=== PATIENT | female | born 1980 | race Caucasian/White ===

== ENCOUNTER 2020-05-14 21:14 | Emergency (ER) | payer MEDICAID, SELFPAY ==
[2020-05-14 21:15] VITALS: BP 146/82; PULSE 74; RESP 16; TEMP 36.3; O2SAT 99; BMI 49.2
[2020-05-14] MEDS: cycloBENZAPRine HCl 5 MG TABLET PO (22:20)
[2020-05-14] MEDS: Triamcinolone Acetonide 40 MG/ML Vial IM (22:21)
[2020-05-14] MEDS: Ketorolac 15 MG/ML Vial IM (22:22)
--- NOTE | 2020-05-14 22:57 | ED.DCSUM_ITS ---
History of Present Illness Chief Complaint: Back Narrative: 39-year-old male presents with left back pain radiating into her left leg. Has a past medical history of sciatica. 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 Lawrence that she may have aggravated it yesterday. Describes the pain is aching and worse with movement. Denies any loss of bowel or bladder. Denies any fever, chills, IV drug abuse, saddle anesthesia. Past Medical History - Allergies and Home Meds Allergies/Adverse Reactions: Allergies Penicillins Allergy (Verified 05/14/20 21:17) Hives Primary Care Physician: NOT,DEFINED [Primary Care Provider] - Past Medical History: None Surgical History: no surgical history Lives: With Family Smoking Status: Never smoker Alcohol: None Drugs: None Review of Systems General: Denies: Chills, Fever, Sweats Eyes: Denies: Visual changes - bilaterally, Diplopia ENT: Denies: Rhinorrhea, Sore throat Cardiovascular: Denies: Chest pain, Palpitations Respiratory: Denies: Dyspnea, Cough, Dyspnea on exertion Gastrointestinal: Denies: Abdominal pain, Nausea, Vomiting, Diarrhea, Melena, Hematochezia Genitourinary: Denies: Dysuria, Hematuria, Frequency Musculoskeletal: Reports: Back pain. Denies: Extremity Pain Skin: Denies: Rash, Wounds Neurological: Denies: Headache, Weakness, Numbness Physical Exam Vital Signs/Narrative: Vital Signs Temp Pulse Resp BP Pulse Ox 05/14/20 21:15 97.3 F L 74 16 146/82 H 99 Inital Vital Signs reviewed: Yes General: Well nourished, Well developed, No Acute Distress Head: Normocephalic, Atraumatic Eyes: Perrl, EOMI ENT: Moist mucous membranes, No rhinorrhea Neck: Supple, Nontender Cardiovascular: Regular rate, Regular rhythm, No murmurs Respiratory: No distress, CTA bilaterally, Chest nontender Abdomen: Soft, Nontender, Nondistended, Normal bowel sounds Back: Nontender, Normal Inspection, - - Left paraspinal lumbar muscle spasm. Extremities: Nontender, No edema Skin: Normal color, No rash Neurological: Alert, Oriented x3, Cranial nerves II-XII grossly intact, Normal Strength, Normal Sensation Psychological: Normal affect, Normal Mood Diagnostic/Tx/Re-eval - Medical Decision Making Appears well nontoxic. Vital signs within normal limits. No indication for imaging. Patient will be given Kenalog, Toradol, cyclobenzaprine. Given naproxen and cyclobenzaprine for home. No red flag symptoms for cauda equina. Discharged home in stable condition. Impression: 1. Lumbar back pain 2. Sciatica ED Disposition - Plan for ED Patient: Disposition: Home or Assisted Living Instructions: ED Back Pain Acute or Chronic Prescriptions: cycloBENZAPRine HCl [Flexeril] 10 mg PO TID PRN #10 tab PRN Reason: Muscle Spasm Prescription Printed Naproxen [Naprosyn] 500 mg PO BID #14 tab Prescription Printed Referrals: Doctor,Your [STAFF PHYSICIAN] - 1 Day
[2020-05-14 23:29] VITALS: BP 136/62; PULSE 78; RESP 18; O2SAT 96
== END 2020-05-14 23:30 | disposition home or self-care (01) ==
LOC: ED 23:21
PROVIDERS: Emergency Provider Emergency Medicine
DX: M54.5 Low back pain (principal)
CPT/HCPCS: 96372; 99283

== ENCOUNTER 2020-06-09 17:27 | Emergency (ER) | payer MEDICAID, SELFPAY ==
[2020-06-09 17:28] VITALS: BP 128/86; PULSE 87; RESP 13; TEMP 36.9; O2SAT 96; BMI 43.0
--- NOTE | 2020-06-09 17:43 | CT_ITS ---
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 Individualized dose optimization techniques were used for this CT. COMPARISON: No relevant priors. FINDINGS: Normal soft tissue structures. Normal calvarium. Normal size ventricles and extra-axial spaces for the patient''s age. Normal white matter tracts of the cerebral hemispheres. Normal basal ganglia and thalami. Normal brainstem. Normal cerebellum. There is no intracranial hemorrhage. There are no findings of an acute ischemic infarction. Normal visualized paranasal sinuses. CT/Brain/Head without Contrast IMPRESSION: Normal unenhanced CT scan of the brain. Electronically Signed: Trevor Multani MD at 19:37 EDT , Service support ,
--- NOTE | 2020-06-09 17:43 | EKG12_ITS ---
Test Reason : DIZZINESS Blood Pressure : / mmHG Vent. Rate : 084 BPM Atrial Rate : 084 BPM P-R Int : 136 ms QRS Dur : 086 ms QT Int : 378 ms P-R-T Axes : 030 039 017 degrees QTc Int : 446 ms Normal sinus rhythm Normal ECG Confirmed by MARLEEN MCKAY MD ([id number]), index editor MICHOACANO ALVARADO ([id number]) on 06/11/2020 1:46:57 PM Referred By: ENEIDA Confirmed By:MARLEEN MCKAY MD
--- NOTE | 2020-06-09 17:44 | ED.DCSUM_ITS ---
History of Present Illness Chief Complaint: Syncope Informant: Patient Onset: Today Context: Gradual Onset - prodromal lightheadedness Timing: Continuous Quality: feeling faint/dizzy Location: head Current Severity: Mild Maximum Severity: Severe Worsened by: nothing in particular Relieved by: being on floor Associated Symptoms: mild prodromal headache. no other prodromal sx. Narrative: Patient passed out briefly after feeling very lightheaded and having a mild headache. No prodromal chest pain, shortness of breath, nausea/vomiting, neck pain, focal neurologic symptoms, diplopia. 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 She was mopping her floor at the time and had been standing, walking around doing trash and floors like this, for an hour or more and had not just stood up. She think she has been drinking well. She has had recent illness that is much improved compared to the last couple weeks, she had diarrhea, nonproductive cough, myalgias, subjective fevers and chills. She was tested for Covid and it was negative. This has been going on for about 2 weeks, but she is much better now, just with a residual nonproductive cough. From passing out today, she states she collapsed to the floor and thinks maybe she bumped her head, she does not have a severe headache and did not have a severe headache or thunderclap prior to the episode. She thinks she lost consciousness fairly briefly and not for any extended period of time. There was a family member nearby who heard her, and went to her, she was unconscious at the time but came to fairly quickly. Prior similar symptoms: Yes - couple weeks ago, similar to this episode - Past Medical History (1) Anxiety Status: Chronic Past Medical History - Allergies and Home Meds Allergies/Adverse Reactions: Allergies Penicillins Allergy (Verified 06/09/20 17:31) Hives Primary Care Physician: Care Physician,No Primary [NON-STAFF] - Surgical History: no surgical history Smoking Status: Never smoker Drugs: None Review of Systems General: Reports: Malaise. Denies: Chills, Fever, Sweats Eyes: Denies: Visual changes - bilaterally, Diplopia ENT: Denies: Bilateral ear pain, Rhinorrhea, Sore throat Cardiovascular: Denies: Chest pain, Palpitations Respiratory: Reports: Cough. Denies: Dyspnea, Sputum, Dyspnea on exertion Gastrointestinal: Denies: Abdominal pain, Nausea, Vomiting, Diarrhea, Melena, Hematochezia Genitourinary: Denies: Dysuria, Hematuria, Frequency Musculoskeletal: Reports: Myalgias - Better now. Denies: Neck pain, Back pain, Swelling, Extremity Pain Skin: Denies: Rash, Wounds Neurological: Reports: Headache. Denies: Weakness, Numbness Physical Exam Vital Signs/Narrative: Vital Signs Temp Pulse Resp BP Pulse Ox 06/09/20 17:28 98.4 F 87 13 128/86 H 96 Inital Vital Signs reviewed: Yes General: Well nourished, Well developed, Obese, No Acute Distress Head: Normocephalic, Atraumatic Eyes: Perrl, EOMI ENT: Moist mucous membranes, No rhinorrhea, TM's clear - No infection, hemotympanum, - - Midface stable and atraumatic, nontender.. Negative for: Sinus tenderness Neck: Supple, Nontender, No lymphadenopathy, No JVD Cardiovascular: Regular rate, Regular rhythm, No murmurs. Negative for: Tachycardia, Bradycardia Respiratory: No distress, CTA bilaterally, Chest nontender Abdomen: Soft, Nontender, Nondistended, Normal bowel sounds Back: Nontender, Normal Inspection Extremities: Nontender, No edema. Negative for: Calf Tenderness Skin: Normal color, No rash Neurological: Alert, Oriented x3, Cranial nerves II-XII grossly intact, Normal Strength, Normal Sensation Psychological: Normal affect, Normal Mood Diagnostic/Tx/Re-eval Impressions Brain CT 06/09/20 17:43 IMPRESSION: Normal unenhanced CT scan of the brain. Electronically Signed: Trevor Multani MD at 19:37 EDT , Service support , 06/09/20 17:43 Brain/Head without Contrast [CT] Stat Laboratory Results 06/09/20 06/09/20 06/09/20 17:09 17:09 17:09 WBC 11.6 H RBC 4.53 Hgb 13.1 Hct 40.4 MCV 89.2 MCH 28.9 MCHC 32.4 RDW Std Deviation 44.2 H RDW Coeff of Zuleika 13.5 Plt Count 323 MPV 11.3 Immature Gran % (Auto) 0.500 Neut % (Auto) 67.7 Lymph % (Auto) 23.5 [place] % (Auto) 6.4 Eos % (Auto) 1.6 Baso % (Auto) 0.3 Absolute Neuts (auto) 7.8 H Absolute Lymphs (auto) 2.72 Nucleated RBC % 0 D-Dimer Quant (PE/DVT) 0.29 Sodium 141 Potassium 3.6 Chloride 108 H Carbon Dioxide 25.0 Anion Gap 8 BUN 19 H Creatinine 1.04 H Estim Creat Clear Calc 64.06 Est GFR (MDRD) Af Amer 75 Est GFR (MDRD) Non-Af 62 BUN/Creatinine Ratio 18.3 Glucose 95 Calcium 9.4 Troponin I < 0.015 Serum , Qual 06/09/20 18:10 WBC RBC Hgb Hct MCV MCH MCHC RDW Std Deviation RDW Coeff of Zuleika Plt Count MPV Immature Gran % (Auto) Neut % (Auto) Lymph % (Auto) [place] % (Auto) Eos % (Auto) Baso % (Auto) Absolute Neuts (auto) Absolute Lymphs (auto) Nucleated RBC % D-Dimer Quant (PE/DVT) Sodium Potassium Chloride Carbon Dioxide Anion Gap BUN Creatinine Estim Creat Clear Calc Est GFR (MDRD) Af Amer Est GFR (MDRD) Non-Af BUN/Creatinine Ratio Glucose Calcium Troponin I Serum , Qual NEGATIVE - Rhythm Strip Rhythm Strip: Sinus Rhythm Rate: 84 Ectopy: None - EKG Initial EKG Interpretation: Sinus Rhythm, No Acute Injury Pattern - normal EKG Prior: No Prior - Medical Decision Making Work-up is negative including D-dimer, EKG, troponin, CT head. She states that she does have a mild headache. Pain low risk for pulmonary embolus and having a negative D-dimer, this essentially rules out PE as acute cause of her syncopal episode. She has prerenal azotemia, but in talking with the patient more she sounds like she is drinking plenty of water while at work and unlikely that she passed out from any dehydration. However, the history is low risk. She does not have symptoms of dysrhythmia. Could be vagal phenomenon but she did not have any historical events that are obvious for triggering such a phenomenon at this time. Given all this I think it is safe that she is discharged, as this is technically low risk syncope given the history and work-up. If she has the symptoms come on again I recommend getting to a place where she can safely sit or lie down until it passes, change positions slowly, drink plenty of fluids in the meantime until she follows up with her doctor. Discussed this with her mother as well. They are comfortable with this overall plan. ED Disposition - Plan for ED Patient: Disposition: Home or Assisted Living Diagnosis: Syncope, Prerenal azotemia Instructions: ED Hypotension Orthostatic, ED VAGAL SYNCOPE Referrals: Doctor,Your [STAFF PHYSICIAN] - 1-2 Weeks
--- NOTE | 2020-06-09 17:48 | NURSING ---
NO OLD EKGS
[2020-06-09 18:22] LABS: Absolute Lymphocyte Count 2.72 X10^3/uL (0.83-4.51); Absolute Neutrophil Count 7.8 X10^3/uL (2.0-7.7); Basophil# 0.04 X10^3/uL; Basophil% 0.3 % (0-1); Eosinophil# 0.19 X10^3/uL; Eosinophils% 1.6 % (0-5); Hematocrit 40.4 % (37-47); Hemoglobin 13.1 g/dL (12.0-15.0); Lymphocyte # 2.72 X10^3/ul (4.0); Lymphocyte % 23.5 % (19-41); Mean Corp Hgb Conc 32.4 g/dL (32-36); Mean Corpuscular Hgb 28.9 pg (27.0-32.0); Mean Corpuscular Volume 89.2 fL (81-99); Mean Platelet Vol. 11.3 fl (6.2-12.0); Monocyte# 0.74 X10^3/uL; Monocyte% 6.4 % (0-10); NRBC Flagged by Analyzer 0 % (0-5); Neutrophil # 7.81 X10^3/uL (2.7-7.7); Neutrophil % 67.7 % (47-70); Platelet Count 323 K/mm3 (150-450); RBC Distribution Width CV 13.5 % (11.6-14.6); RBC Distribution Width SD 44.2 fl (35.1-43.9); Red Blood Count 4.53 M/mm3 (4.2-5.4); White Blood Count 11.6 K/mm3 (4.4-11.0)
[2020-06-09] MEDS: 0.9% Normal Saline 1,000 ML 999 ML IV (18:36)
[2020-06-09 18:50] LABS: Anion Gap 8 (5-15); BUN 19 mg/dL (7-18); BUN/Creat Ratio 18.3 RATIO (10-20); Calcium,Total 9.4 mg/dL (8.5-10.1); Chloride 108 mmol/L (98-107); Creatinine, Serum 1.04 mg/dL (0.55-1.02); EST Glomerular Filtration Rate 62 mL/min (>60); Est Glom Filt Rate - Afr Amer 75 mL/min (>60); Estimated Creatinine Clearance 64.06 ml/min; Glucose 95 mg/dL (74-106); Potassium 3.6 mmol/L (3.5-5.1); Sodium Level 141 mmol/L (136-145)
[2020-06-09 18:52] LABS: D-Dimer Quantitative (DVT/PE) 0.29 FEU/ug/m (0.27-0.49)
[2020-06-09 18:56] LABS: Internal QC Validated? YES +Cl - CLEAR BKGD; Pregnancy, Serum, hCG Quali. NEGATIVE Negative
[2020-06-09 20:10] VITALS: BP 140/96; BP 143/96; BP 153/89; PULSE 75; PULSE 82; PULSE 84; PULSE 92
[2020-06-09 20:42] VITALS: BP 140/96; PULSE 82; RESP 16; O2SAT 100
== END 2020-06-09 20:43 | disposition home or self-care (01) ==
PROVIDERS: Emergency Provider Emergency Medicine
DX: R55 Syncope and collapse (principal); R79.89 Other specified abnormal findings of blood chemistry; E66.9 Obesity, unspecified
CPT/HCPCS: 70450; 80048; 84484; 84703; 85025; 85379; 93005; 96360; 96361; 99285; A4216

== ENCOUNTER 2020-10-30 16:54 | Outpatient (RCR) | payer OTHER, MEDICAID, SELFPAY ==
[2020-10-30] MEDS: COVID-19 VACC, MRNA(PFIZER)/PF 30 MCG/0.3 ML SYRINGE IM (17:08)
[2020-11-20] MEDS: COVID-19 VACC, MRNA(PFIZER)/PF 30 MCG/0.3 ML SYRINGE IM (12:21)
== END 2021-01-20 23:59 ==
LOC: IMMUN 16:54
PROVIDERS: Referring Provider Family Medicine; Visit Provider Family Medicine
DX: Z23 Encounter for immunization (principal)
CPT/HCPCS: 0001A; 0002A; 91300

== ENCOUNTER 2022-12-20 10:29 | Emergency (ER) | payer MEDICAID, SELFPAY ==
[2022-12-20 10:30] VITALS: BP 110/84; PULSE 76; RESP 16; TEMP 36.1; O2SAT 98; BMI 36.3
--- NOTE | 2022-12-20 11:12 | EDS_ITS ---
HPI History of Present Illness Chief Complaint: Upper Extremity Injury Narrative Narrative: Patient presents with right hand pain for about a year. She has pain mostly in the thumb today although sometimes her fingers lock up. She has no new injuries other than her pain is worse in the right hand. [facility] Medical History Bilateral carpal tunnel syndrome Left hand pain Right hand pain Home Medications hydroxyzine pamoate 100 mg capsule 100 mg PO QHS 10/11/22 [History Last Taken Unknown] quetiapine 25 mg tablet 25 mg PO DAILY 10/11/22 [History Last Taken Unknown] sertraline 200 mg capsule 200 mg PO DAILY 10/11/22 [History Last Taken Unknown] trazodone 50 mg tablet 50 mg PO DAILY 10/11/22 [History Last Taken Unknown] Allergy/AdvReac Type Severity Reaction Status Date / Time Penicillins Allergy Hives Verified 12/20/22 10:30 Family History Father Adult T-cell lymphoma Other Cancer Surgical History H/O section History of endometrial ablation History of tubal ligation Social History Smoking Status: Never smoker alcohol intake: current alcohol intake frequency: holidays/special occasions only substance use type: marijuana ROS ROS ED ROS Narrative Past medical history: none Medications: Reviewed Social history: Noncontributory Review of systems: Musculoskeletal: Right hand pain as in HPI Skin: No abrasions or lacerations Neurological: No weakness or paresthesias Hematologic: No easy bleeding or easy bruising EXAM Physical Exam Narrative Exam Narrative: Physical exam General: Patient does not appear in significant distress . Head: Normocephalic, Atraumatic Neck: No C-spine tenderness Cardiovascular: Normal distal pulses Back: Nontender, Normal Inspection. Extremities: Patient has tenderness in the thumb mostly at the MP joint however there is no erythema or calor. There is no joint effusion or swelling. She has normal strength and sensation. She does have a positive Phalen's and Tinel's test. Skin: No abrasions, no lacerations Neurological: Normal strength and sensation Const Vital Signs: 12/20/22 10:30 Temperature 97.0 F L Temperature Source Temporal Pulse Rate 76 Respiratory Rate 16 Blood Pressure 110/84 H Blood Pressure Mean 92 Pulse Ox 98 Oxygen Delivery Method Room Air MDM MDM MDM Narrative Medical decision making narrative: Right hand x-ray read by me as normal. Since being in the ED she is significantly improved, she is able to move her hands. She think she may have trigger finger however I do not find this on exam regardless I will follow-up with hand surgery she may need nerve conduction test especially the both Phalen's and Tinel's tests were positive and she may have carpal tunnel syndrome. Otherwise I will discharge her in stable condition. There is no signs of symptoms of joint effusion or any kind of infectious process. Discharge Plan Triage Chief Complaint: Upper Extremity Injury ED Provider: Kali Preston Dx/Rx/DC Orders Clinical Impression: Hand pain, Hand paresthesia Instructions: Wrist Flexion Exercises Prescriptions: No Action sertraline 200 mg capsule 200 mg PO DAILY hydroxyzine pamoate 100 mg capsule 100 mg PO QHS quetiapine 25 mg tablet 25 mg PO DAILY trazodone 50 mg tablet 50 mg PO DAILY Primary Care Provider: Robyn Chin CNP Referrals: Robyn Chin CNP [Other] Waldemar Rizo MD [Non-Staff] - 3-5 Days Disposition Disposition: Home, Self Care
--- NOTE | 2022-12-20 11:15 | RAD_ITS ---
STUDY: X-RAY - RIGHT HAND REASON FOR EXAM: Female, 42 years old. Nontraumatic pain of the thumb. TECHNIQUE: 3 view(s) of the hand. COMPARISON: Comparison is made with prior study October 11, 2022. FINDINGS: Normal radiocarpal articulation. Normal distal radioulnar joint. Normal visualized carpal bones. Normal carpal articulations Normal carpometacarpal articulation of the thumb. Normal second through fifth carpometacarpal joints. Normal metacarpi. Normal metacarpophalangeal joint of the thumb. Normal interphalangeal joint of the thumb. Normal proximal and distal phalanges of the thumb. Normal metacarpophalangeal joints of the second through fifth fingers. Normal proximal and distal interphalangeal joints of the second through fifth fingers. Normal phalanges of the second through fifth fingers. The soft tissue structures are unremarkable. RAD/Hand Min 3 Views IMPRESSION: Normal x-ray examination of the hand. Electronically Signed: Te Patel MD at 11:52 EDT ,
[2022-12-20 12:50] VITALS: RESP 18
== END 2022-12-20 12:52 | disposition home or self-care (01) ==
PROVIDERS: Emergency Provider Emergency Medicine; Visit Provider Emergency Medicine
DX: M79.641 Pain in right hand (principal); R20.2 Paresthesia of skin; F12.90 Cannabis use, unspecified, uncomplicated
CPT/HCPCS: 73130; 99283

== ENCOUNTER 2023-11-14 19:27 | Emergency (ER) | payer MEDICAID, SELFPAY ==
[2023-11-14 19:28] VITALS: BP 143/83; PULSE 101; RESP 20; TEMP 35.9; O2SAT 98; BMI 36.3
[2023-11-14 19:29] VITALS: BP 143/83; PULSE 98; RESP 16; TEMP 35.9; O2SAT 97
--- NOTE | 2023-11-14 19:35 | RAD_ITS ---
STUDY: X-RAY CHEST REASON FOR EXAM: Female, 43 years old. cough TECHNIQUE: Single frontal view of the chest. COMPARISON: None. FINDINGS: The lungs are clear and expanded. There is no demonstrated pleural abnormality. Normal size heart. Normal mediastinum and rayna. Normal visualized pulmonary arteries. Normal visualized aortic arch and descending thoracic aorta. Mild scoliosis. Normal visualized ribs, clavicles, and shoulders. There is no demonstrated abnormality of the visualized soft tissue structures of the upper abdomen. RAD/Chest 1 View (Portable) IMPRESSION: Mild scoliosis. No acute disease. Electronically Signed: Aleksander Bowens MD at 19:52 EDT ,
[2023-11-14 20:51] VITALS: BP 139/74; PULSE 91; RESP 18; TEMP 36; O2SAT 99
[2023-11-14 21:27] VITALS: RESP 16; O2SAT 98
--- NOTE | 2023-11-14 21:49 | EDS_ITS ---
HPI HPI - URI History of Present Illness Chief Complaint: Cough Informant: patient Onset/Context/Timing Onset: Weeks (2) Context: Gradual Onset Timing: Continuous Quality: Aching Location: Generalized Worsened by: - (Nothing) Relieved by: - (Nothing) Associated Symptoms Associated Symptoms: Positive for Nasal Congestion, Headache, Sinus Pressure, Myalgias, Nausea, Vomiting, Diarrhea, Shortness of Breath, Chest Pain and Nonproductive cough Narrative Narrative: Patient presents with cough and chest pain that has been getting worse over the past 2 weeks. Patient states she feels achy all over. Patient states it is gradually getting worse. Patient states it has been constant. Patient admits to headache, sinus pressure, body aches, shortness of breath, and chest pain. Patient states that since arrival to the emergency department started having some nausea, vomiting, and diarrhea. Patient denies any sputum production. Patient admits to some subjective chills and sweats. Patient did not take her temperature. ROS ROS ED Constitutional Constitutional ED: Reports chills, subjective and sweats; Denies fever(s) Eyes Eyes: Denies blurry vision or change in vision ENT ENT ED: Denies rhinorrhea or sore throat Cardiovascular Cardiovascular: Reports chest pain; Denies palpitations Respiratory/Chest Respiratory/Chest: Reports cough; Denies dyspnea Gastrointestinal Gastrointestinal: Reports diarrhea, nausea and vomiting Genitourinary Genitourinary ED: Denies dysuria or hematuria Musculoskeletal Musculoskeletal: Reports myalgias Integumentary Denies abscess or rash Neurologic Neurologic: Reports headache(s); Denies weakness Allergic/Immunologic Allergic/Immunologic ED: Denies mouth swelling or urticaria [facility] Medical History Bilateral carpal tunnel syndrome Left hand pain Right hand pain Home Medications hydroxyzine pamoate 100 mg capsule 100 mg PO QHS 10/11/22 [History Last Taken Unknown] quetiapine 25 mg tablet 25 mg PO DAILY 10/11/22 [History Last Taken Unknown] sertraline 200 mg capsule 200 mg PO DAILY 10/11/22 [History Last Taken Unknown] trazodone 50 mg tablet 50 mg PO DAILY 10/11/22 [History Last Taken Unknown] benzonatate 100 mg capsule 200 mg (2 x 100 mg) PO TID PRN PRN Cough #20 CAPSULES 11/14/23 [Rx Last Taken Unknown] Allergy/AdvReac Type Severity Reaction Status Date / Time Penicillins Allergy Hives Verified 11/14/23 19:28 Family History Father Adult T-cell lymphoma Other Cancer Surgical History H/O section History of endometrial ablation History of tubal ligation Social History Smoking Status: Never smoker alcohol intake: current alcohol intake frequency: holidays/special occasions only substance use type: marijuana EXAM Physical Exam Const Vital Signs: 11/14/23 19:28 11/14/23 19:29 11/14/23 20:51 Temperature 96.6 F L 96.6 F L 96.8 F L Temperature Source Temporal Temporal Temporal Pulse Rate 101 H 98 91 Respiratory Rate 20 H 16 18 Blood Pressure 143/83 H 143/83 H 139/74 H Blood Pressure Mean 103 103 95 Pulse Ox 98 97 99 Positive well nourished, well developed and obese General Appearance ED: well developed and NAD Nutritional Appearance: obese HEENT Reports moist mucous membranes Neck supple, no meningeal signs and no JVD Resp normal respiratory effort and clear to auscultation bilaterally Cardio Rate: regular rate Rhythm: regular rhythm GI non-tender and non-distended Palpation: soft Neuro oriented x3, CN's II-XII intact bilaterally and no sensory deficits noted Sensorium / Orientation: alert Motor Exam: strength 5/5 throughout Psych mental status grossly normal MDM MDM MDM Narrative Medical decision making narrative: Differential diagnosis includes pneumonia, and viral upper respiratory infection. Chest x-ray will be obtained to assess for pneumonia. Radiography Chest X-Ray - ED: 1 View, Read by ED Physician, Read by Radiologist and No Acute Disease Diagnostic Testing: Clinical Impression(s) from Imaging Studies Chest X-Ray 11/14/23 19:35 IMPRESSION: Mild scoliosis. No acute disease. Electronically Signed: Aleksander Bowens MD at 19:52 EDT Reading Location ID and State: [address] [place] [address] Tel , Service support , Portable 1 view chest x-ray was obtained. On my independent interpretation, lung meza are clear. There is normal cardiac silhouette. Bony thorax is no rmal. There is no acute process noted. Radiologist also interpreted the x-ray and agrees. Treatment and Re-Evaluation Narrative: Patient was advised of her findings. Patient was advised that this most likely a viral upper respiratory infection. Patient was given a prescription for Tessalon Perles. Patient was instructed to drink plenty of fluids. Patient was instructed to follow-up with her primary care physician in 5 to 7 days. Patient understood and was agreeable with the plan. All questions were answered. Discharge Plan Triage Chief Complaint: Cough ED Provider: Doyle Godfrey Dx/Rx/DC Orders Clinical Impression: Cough, Viral upper respiratory tract infection Instructions: ED URI, Viral, No Abx (Adult) Prescriptions: New benzonatate [benzonatate] 100 mg capsule 200 mg PO TID PRN PRN (Reason: Cough) Qty: 20 0RF No Action sertraline 200 mg capsule 200 mg PO DAILY hydroxyzine pamoate 100 mg capsule 100 mg PO QHS quetiapine 25 mg tablet 25 mg PO DAILY trazodone 50 mg tablet 50 mg PO DAILY Primary Care Provider: Robyn Chin CNP Referrals: Robyn Chin CNP [Other] - 3-5 Days Disposition Disposition: Home, Self Care
[2023-11-14 22:00] VITALS: BP 133/89; PULSE 69; RESP 16; TEMP 36.9; O2SAT 100
== END 2023-11-14 22:01 | disposition home or self-care (01) ==
LOC: ED 21:58
PROVIDERS: Emergency Provider Emergency Medicine; Visit Provider Emergency Medicine
DX: J06.9 Acute upper respiratory infection, unspecified (principal); F12.90 Cannabis use, unspecified, uncomplicated
CPT/HCPCS: 71045; 94760; 99282

== ENCOUNTER 2024-03-12 08:33 | Emergency (ER) | payer BC, SELFPAY ==
[2024-03-12 08:36] VITALS: BP 124/113; PULSE 76; RESP 18; TEMP 36.5; O2SAT 97; BMI 35.2
--- NOTE | 2024-03-12 09:12 | EDS_ITS ---
HPI HPI - GI History of Present Illness Chief Complaint: Abd Pain Informant: patient Abdominal Pain/Flank Pain Onset: Days Context: Sudden Onset Timing: Intermittent Quality: Cramping Location: Diffuse Worsened by: Nothing Relieved by: Nothing Nausea/Vomiting/Emesis GI Symptom: Positive for Nausea and Vomiting Quality: Positive for Nonbilious; Negative for Blood streaks, Coffee ground or Hematemesis Diarrhea/Melena/Hematochezia GI Symptom: Positive for Diarrhea Stool Quality: Positive for Watery Associated Symptoms Associated Symptoms: Negative for Dysuria, Frequency or Hematuria LMP: 3 weeks ago Narrative Narrative: Patient presents with abdominal pain that has been intermittent over the past several days. Patient states that is getting more frequent over the past 4 to 5 days. Patient states she has noticed the pain for a few months. Patient states her pain is diffuse across her entire abdomen. Patient describes it as cramping. Patient states it comes and goes. Patient states nothing makes it better and nothing makes it worse. Patient states she has an appointment with an information management officer coming up soon because she has been having intermittent hives as well. Patient denies any new foods. Patient states she has been having some nausea and vomiting but denies any hematemesis or coffee-ground emesis. Patient does admit to some diarrhea. Patient states it is usually just a small amount of diarrhea and it is watery. Patient denies any urinary complaints. Patient states her last menstrual period was approximately 3 weeks ago. [facility] Medical History Rheumatoid arthritis Bilateral carpal tunnel syndrome Left hand pain Right hand pain Home Medications ?Medication ?Instructions ?Recorded ?Last Taken ?Type hydroxyzine pamoate 100 mg capsule 100 mg PO QHS 10/11/22 Unknown History quetiapine 25 mg tablet 25 mg PO DAILY 10/11/22 Unknown History sertraline 200 mg capsule 200 mg PO DAILY 10/11/22 Unknown History trazodone 50 mg tablet 50 mg PO DAILY 10/11/22 Unknown History benzonatate 100 mg capsule 200 mg (2 x 100 mg) PO TID PRN PRN 11/14/23 Unknown Rx Cough #20 CAPSULES ciprofloxacin HCl 500 mg tablet 500 mg PO BID #20 TABLETS 03/12/24 Unknown Rx dicyclomine 10 mg capsule 20 mg (2 x 10 mg) PO TIDAC #20 03/12/24 Unknown Rx CAPSULES metronidazole 500 mg tablet 500 mg PO Q6H #40 tabs 03/12/24 Unknown Rx Allergy/AdvReac Type Severity Reaction Status Date / Time Penicillins Allergy Hives Verified 03/12/24 09:10 Family History Father Adult T-cell lymphoma Other Cancer Surgical History History of endometrial ablation History of tubal ligation H/O section Social History Smoking Status: Never smoker alcohol intake: current alcohol intake frequency: holidays/special occasions only substance use type: marijuana ROS ROS ED Constitutional Constitutional ED: Reports fever(s); Denies chills Eyes Eyes: Denies blurry vision or change in vision ENT ENT ED: Denies rhinorrhea or sore throat Cardiovascular Cardiovascular: Denies chest pain or palpitations Respiratory/Chest Respiratory/Chest: Denies cough or dyspnea Gastrointestinal Gastrointestinal: Reports abdominal pain, diarrhea, nausea and vomiting Genitourinary Genitourinary ED: Denies dysuria or hematuria Musculoskeletal Musculoskeletal: Reports back pain and neck pain Integumentary Reports rash; Denies abscess Neurologic Neurologic: Reports headache(s) and weakness Allergic/Immunologic Allergic/Immunologic ED: Reports urticaria; Denies mouth swelling EXAM Physical Exam Const Vital Signs: 03/12/24 08:36 03/12/24 10:34 Temperature 97.7 F L Temperature Source Temporal Pulse Rate 76 65 Respiratory Rate 18 16 Blood Pressure 124/113 H 119/69 Blood Pressure Mean 116 85 Pulse Ox 97 98 Oxygen Delivery Method Room Air Room Air Positive well nourished and well developed General Appearance ED: well developed and NAD HEENT Reports moist mucous membranes Neck supple and no JVD Resp normal respiratory effort and clear to auscultation bilaterally Cardio regular rate and regular rhythm GI non-distended Palpation: soft and tender epigastric, LLQ, RLQ, LUQ, RUQ, periumbilical and suprapubic; Negative for guarding or rebound tenderness present Extremity full ROM Neuro CN's II-XII intact bilaterally, moves all extremities and no sensory deficits noted Sensorium / Orientation: alert Motor Exam: strength 5/5 throughout Psych mental status grossly normal Skin Skin Narrative: There are mild patchy urticaria noted. There are no vesicles or pustules noted. There are no petechia noted. There is no involvement of mucous membranes. There is no involvement of the palms or soles. MDM MDM MDM Narrative Medical decision making narrative: Differential diagnosis includes gastroenteritis, inflammatory bowel disease, colitis, enteritis, celiac disease, cholecystitis, cholelithiasis, pancreatitis, and urinary tract infection. CBC will be obtained to assess for leukocytosis and anemia. Comprehensive metabolic profile will be obtained to assess for hepatic function, renal function, and electrolyte abnormality. Urinalysis will be obtained to assess for urinary tract infection and hematuria. CT scan of the abdomen pelvis will be obtained to assess for enteritis, colitis, cholecystitis, and bowel obstruction. Lab Data Attestation: I reviewed the patient's lab results. Lab results narrative: CBC was reviewed and was within normal limits. Comprehensive metabolic profile was reviewed. Glucose was slightly elevated at 120 and chloride was slightly elevated at 111. The remainder is within normal limits. Lipase was reviewed and was normal at 32. Serum hCG was reviewed and was negative. Urinalysis was reviewed. There is no evidence of urinary tract infection or hematuria. Labs: Laboratory Results - last 24 hr 03/12/24 09:45 WBC 5.5 RBC 4.39 Hgb 13.0 Hct 39.2 MCV 89.3 MCH 29.6 MCHC 33.2 RDW Std Deviation 42.7 RDW Coeff of Zuleika 13.0 Plt Count 203 MPV 11.7 Immature Gran % (Auto) 0.400 Neut % (Auto) 72.6 H Lymph % (Auto) 16.3 L [place] % (Auto) 7.4 Eos % (Auto) 2.9 Baso % (Auto) 0.4 Absolute Neuts (auto) 4.0 Absolute Lymphs (auto) 0.90 Nucleated RBC % 0 Sodium 139 Potassium 3.9 Chloride 111 H Carbon Dioxide 23.0 Anion Gap 5 BUN 14 Creatinine 0.89 Estim Creat Clear Calc 75.56 Est GFR (MDRD) Af Amer 88 Est GFR (MDRD) Non-Af 73 BUN/Creatinine Ratio 15.8 Glucose 120 H Calcium 9.5 Total Bilirubin 1.00 AST 18 ALT 24 Alkaline Phosphatase 50 Total Protein 7.8 Albumin 3.8 Globulin 4.0 Albumin/Globulin Ratio 1.0 Lipase 32 Serum , Qual NEGATIVE Urine Color Yellow Urine Clarity Clear Urine pH 6.0 Ur Specific [place] 1.010 Urine Protein Negative Urine Glucose (UA) Normal Urine Ketones Negative Urine Occult Blood Negative Urine Nitrite Negative Urine Bilirubin Negative Urine Urobilinogen Normal Ur Leukocyte Esterase Negative Urine RBC 0 SEEN Urine WBC 0 SEEN Ur Squamous Epith Cells 0-5 SEEN Urine Bacteria 0 SEEN Urine Mucus 0 SEEN Radiography Diagnostic Testing: Clinical Impression(s) from Imaging Studies Abdomen/Pelvis CT 03/12/24 09:31 IMPRESSION: Findings in keeping with pancolitis. There is thickening of the terminal ileum. Crohn''s disease should be ruled out. Electronically Signed: Te Patel MD at 10:47 EDT , CT scan of the abdomen pelvis was obtained. There is pancolitis noted. There is thickening of the terminal ileum. There is no evidence of obstruction or perforation. This was interpreted by the radiologist and was also independently reviewed by myself. Treatment and Re-Evaluation :: Patient was given IV fluids, Zofran, and Bentyl. Patient was feeling better on reevaluation. Patient was advised of her findings. Patient was given prescriptions for Cipro, Flagyl, and Bentyl. Patient was instructed to avoid alcohol use while taking Flagyl. Patient was instructed to follow-up with her information management officer as scheduled. Patient was also given referral for gastroenterology. Patient was also instructed to follow-up with her primary care physician in 5 to 7 days. Patient was instructed to return if worse in any way. Patient understood and was agreeable with the plan. All questions were answered. Discharge Plan Triage Chief Complaint: Abd Pain ED Provider: Doyle Godfrey Dx/Rx/DC Orders Clinical Impression: Colitis, Abdominal pain Instructions: ED Understanding Colitis Prescriptions: New metronidazole 500 mg tablet 500 mg PO Q6H Qty: 40 0RF ciprofloxacin HCl 500 mg tablet 500 mg PO BID Qty: 20 0RF dicyclomine 10 mg capsule 20 mg PO TIDAC Qty: 20 0RF No Action sertraline 200 mg capsule 200 mg PO DAILY hydroxyzine pamoate 100 mg capsule 100 mg PO QHS quetiapine 25 mg tablet 25 mg PO DAILY trazodone 50 mg tablet 50 mg PO DAILY benzonatate [benzonatate] 100 mg capsule 200 mg PO TID PRN PRN (Reason: Cough) Qty: 20 0RF Primary Care Provider: Sophia Padilla Referrals: Friend,DO Tenzin [Med Staff - Active Staff] - 5-7 Days Care Physician,No Primary [Non-Staff] - Sophia Padilla, STEREOTYPER HELPER-C [Primary Care Provider] - 5-7 Days Print Language: Hungarian Disposition Disposition: Home, Self Care
--- NOTE | 2024-03-12 09:31 | CT_ITS ---
STUDY: CT ABDOMEN AND PELVIS WITH CONTRAST REASON FOR EXAM: Female, 43 years old. 3 month history of worsening diarrhea and vomiting and abdominal pain. RADIATION DOSAGE (If Supplied By Facility): CTDIvol = ( 17.38 ) mGy, DLP = ( 883.02 ) mGycm TECHNIQUE: Transaxial images were obtained from the dome of the diaphragm to the symphysis pubis without oral contrast. IV 100mL Isovue-370 was administered. Sagittal and coronal images were reconstructed. Individualized dose optimization techniques were used for this CT. COMPARISON: None. FINDINGS: The visualized lung bases are unremarkable. The visualized portions of the heart are within normal limits. Normal liver. Normal gallbladder and extrahepatic biliary system. Normal spleen. Normal pancreas. Normal bilateral adrenal glands. Normal right kidney. Normal left kidney. Normal visualized stomach. Thickening of the terminal ileum. There is evidence of [place] colitis. The appendix is visualized and appears normal. Normal abdominal aorta. Normal inferior vena cava. Normal retroperitoneum. Normal urinary bladder. Small hiatal hernia. Normal osseous structures. CT/Abdomen/Pelvis W IV Cont ONLY IMPRESSION: Findings in keeping with pancolitis. There is thickening of the terminal ileum. Crohn''s disease should be ruled out. Electronically Signed: Te Patel MD at 10:47 EDT ,
[2024-03-12] MEDS: 0.9% Normal Saline (1000mL) 1,000 ML 999 ML IV (09:40)
[2024-03-12] MEDS: Dicyclomine 20 MG/2 ML Vial IM (09:40)
[2024-03-12] MEDS: Ondansetron 4 MG/2 ML Vial IV (09:40)
[2024-03-12 09:51] LABS: Bacteria 0 SEEN /hpf (None Seen); Mucous, Urine 0 SEEN /hpf (<or=2+); Red Blood Cells-Urine 0 SEEN /hpf (0-5); White Blood Cells 0 SEEN /hpf (0-5)
[2024-03-12 09:54] LABS: Basophil# 0.02 X10^3/uL; Basophil% 0.4 % (0-1); Eosinophil# 0.16 X10^3/uL; Eosinophils% 2.9 % (0-5); Hematocrit 39.2 % (37-47); Lymphocyte % 16.3 % (19-41); Mean Corp Hgb Conc 33.2 g/dL (32-36); Mean Corpuscular Hgb 29.6 pg (27.0-32.0); Mean Corpuscular Volume 89.3 fL (81-99); Mean Platelet Vol. 11.7 fl (6.2-12.0); Monocyte# 0.41 X10^3/uL; Monocyte% 7.4 % (0-10); NRBC Flagged by Analyzer 0 % (0-5); Neutrophil % 72.6 % (47-70); Platelet Count 203 K/mm3 (150-450); RBC Distribution Width SD 42.7 fl (35.1-43.9); Red Blood Count 4.39 M/mm3 (4.2-5.4); White Blood Count 5.5 K/mm3 (4.4-11.0)
[2024-03-12 09:56] LABS: Color, Urine Yellow (Yellow); Glucose, Dipstick Normal (Normal); Ketone-Dipstick Negative (Negative); Leukocyte Esterase-Dipstick Negative /ul (Negative); Nitrite-Dipstick Negative (Negative); Occult Blood-Urine Negative /ul (Negative); Protein-Dipstick Negative (Negative); Urine Bilirubin Dipstick Negative (Negative); Urine Clarity Clear (Clear); Urine Urobilinogen Normal (Normal)
[2024-03-12 10:01] LABS: Squamous Epithelial Cells - UA 0-5 SEEN /hpf (5-10)
[2024-03-12 10:10] LABS: Internal QC Validated? YES +Cl - CLEAR BKGD; Pregnancy, Serum, hCG Quali. NEGATIVE Negative
[2024-03-12 10:14] LABS: AST(SGOT) 18 U/L (15-37); Alanine Aminotransfer ALT/SGPT 24 U/L (13-56); Albumin, Serum 3.8 g/dL (3.2-5.0); Alkaline Phosphatase 50 U/L (45-117); Anion Gap 5 (5-15); BUN 14 mg/dL (7-18); BUN/Creat Ratio 15.8 RATIO (10-20); Calcium,Total 9.5 mg/dL (8.5-10.1); Chloride 111 mmol/L (98-107); Creatinine, Serum 0.89 mg/dL (0.55-1.02); EST Glomerular Filtration Rate 73 mL/min (>60); Est Glom Filt Rate - Afr Amer 88 mL/min (>60); Estimated Creatinine Clearance 75.56 ml/min; Glucose 120 mg/dL (74-106); Lipase 32 U/L (13-75); Potassium 3.9 mmol/L (3.5-5.1); Protein, Total 7.8 g/dL (6.4-8.2); Sodium Level 139 mmol/L (136-145)
[2024-03-12 10:34] VITALS: BP 119/69; PULSE 65; RESP 16; O2SAT 98
[2024-03-12 11:19] VITALS: BP 131/72; PULSE 64; RESP 16; TEMP 36.3; O2SAT 97
== END 2024-03-12 11:20 | disposition home or self-care (01) ==
PROVIDERS: Emergency Provider Emergency Medicine; PCP Nurse Practitioner Family; Visit Provider Emergency Medicine
DX: K52.9 Noninfective gastroenteritis and colitis, unspecified (principal); F12.90 Cannabis use, unspecified, uncomplicated
CPT/HCPCS: 74177; 80053; 81001; 83690; 84703; 85025; 96372; 96374; 99283; Q9967; A4216; J2405

== ENCOUNTER 2024-03-13 17:05 | Emergency (ER) | payer BC, SELFPAY ==
[2024-03-13 17:05] VITALS: BP 145/71; PULSE 64; RESP 18; TEMP 36.6; O2SAT 98; BMI 37.0
[2024-03-13 17:06] VITALS: BP 145/71; PULSE 64; RESP 18; TEMP 36.6; O2SAT 98
--- NOTE | 2024-03-13 17:30 | ED.VIS.GI ---
HPI HPI - GI History of Present Illness Chief Complaint: Abd Pain Informant: patient Abdominal Pain/Flank Pain Onset: Today Context: Sudden Onset Timing: Continuous Quality: - (Pressure) Location: Diffuse Worsened by: Nothing Relieved by: Nothing Nausea/Vomiting/Emesis GI Symptom: Negative for Nausea or Vomiting Diarrhea/Melena/Hematochezia GI Symptom: Positive for Diarrhea; Negative for Melena or Hematochezia Stool Quality: Positive for Watery Associated Symptoms Associated Symptoms: Negative for Dysuria, Frequency or Hematuria Narrative Narrative: Patient presents with abdominal pain that became worse again today. Patient was seen here yesterday and was diagnosed with colitis and possible Crohn's disease. Patient states she made an appoint with the wireline field operator for later next month. Patient states her pain feels like there is pressure across her entire abdomen. Patient states it is waxing and waning. Patient did admits to some diarrhea today. Patient states nothing makes her pain worse and nothing makes it better. Patient states she has been taking her medications that were prescribed for her yesterday with no improvement. Patient denies any nausea or vomiting. Patient denies any melena or hematochezia. Patient denies any urinary complaints. [facility] Medical History Acute Crohn's disease Rheumatoid arthritis Bilateral carpal tunnel syndrome Left hand pain Right hand pain Home Medications ?Medication ?Instructions ?Recorded ?Last Taken ?Type quetiapine 25 mg tablet 25 mg PO DAILY 10/11/22 03/13/24 History sertraline 200 mg capsule 200 mg PO DAILY 10/11/22 03/13/24 History trazodone 50 mg tablet 50 mg PO DAILY 10/11/22 03/12/24 History ciprofloxacin HCl 500 mg tablet 500 mg PO BID #20 TABLETS 03/12/24 03/13/24 Rx dicyclomine 10 mg capsule 20 mg (2 x 10 mg) PO TIDAC #20 03/12/24 03/13/24 Rx CAPSULES metronidazole 500 mg tablet 500 mg PO Q6H #40 tabs 03/12/24 03/13/24 Rx famotidine 20 mg tablet 20 mg PO QHS PRN PRN indigestion 03/13/24 Unknown History oxycodone-acetaminophen 5 mg-325 1 tab PO Q6H PRN PRN Pain 3 days 03/13/24 Unknown Rx mg tablet #12 TABLETS simvastatin 5 mg tablet 5 mg PO QHS cholesterol 03/13/24 03/12/24 History Allergy/AdvReac Type Severity Reaction Status Date / Time Penicillins Allergy Hives Verified 03/13/24 17:19 Family History Father Adult T-cell lymphoma Other Cancer Surgical History History of endometrial ablation History of tubal ligation H/O section Social History Smoking Status: Never smoker alcohol intake: current alcohol intake frequency: holidays/special occasions only substance use type: marijuana ROS ROS ED Constitutional Constitutional ED: Denies chills or fever(s) Eyes Eyes: Denies blurry vision or change in vision ENT ENT ED: Denies rhinorrhea or sore throat Cardiovascular Cardiovascular: Denies chest pain or palpitations Respiratory/Chest Respiratory/Chest: Denies cough or dyspnea Gastrointestinal Gastrointestinal: Reports abdominal pain and diarrhea; Denies nausea or vomiting Genitourinary Genitourinary ED: Denies dysuria or hematuria Musculoskeletal Musculoskeletal: Reports back pain; Denies neck pain Integumentary Reports rash; Denies abscess Neurologic Neurologic: Reports headache(s); Denies weakness Allergic/Immunologic Allergic/Immunologic ED: Reports urticaria; Denies mouth swelling EXAM Physical Exam Const Vital Signs: 03/13/24 17:05 03/13/24 17:06 03/13/24 18:06 Temperature 97.8 F 97.8 F 97.7 F L Temperature Source Temporal Temporal Temporal Pulse Rate 64 64 77 Respiratory Rate 18 18 16 Blood Pressure 145/71 H 145/71 H 134/75 H Blood Pressure Mean 95 95 94 Pulse Ox 98 98 99 Oxygen Delivery Method Room Air Room Air Room Air 03/13/24 19:45 Temperature Temperature Source Pulse Rate 60 Respiratory Rate 16 Blood Pressure 115/64 Blood Pressure Mean 81 Pulse Ox 100 Oxygen Delivery Method Room Air Positive well nourished and well developed General Appearance ED: well developed and NAD HEENT Reports moist mucous membranes Neck supple and no JVD Resp normal respiratory effort and clear to auscultation bilaterally Cardio regular rate and regular rhythm GI non-distended Palpation: soft and tender epigastric, LLQ, RLQ, LUQ, RUQ, periumbilical and suprapubic; Negative for guarding or rebound tenderness present Extremity full ROM Neuro CN's II-XII intact bilaterally, moves all extremities, no sensory deficits noted and gait normal Sensorium / Orientation: alert Motor Exam: strength 5/5 throughout MDM MDM MDM Narrative Medical decision making narrative: Differential diagnosis includes bowel obstruction, perforation, electrolyte abnormality, colitis, and gastroenteritis. CBC will be obtained to assess for leukocytosis and anemia. Comprehensive metabolic profile will be obtained to assess for hepatic function, renal function, and electrolyte abnormality. Lipase will be obtained to assess for pancreatitis. Acute abdominal x-rays will be obtained to assess for bowel obstruction and perforation. Lab Data Attestation: I reviewed the patient's lab results. Lab results narrative: CBC was reviewed. There is a mild anemia with a hemoglobin of 11.7 and hematocrit 36.0. Comprehensive metabolic profile was reviewed and was within normal limits. Lipase was reviewed and was normal at 58. Labs: Laboratory Results - last 24 hr 03/13/24 17:10 WBC 8.8 RBC 4.00 L Hgb 11.7 L Hct 36.0 L MCV 90.0 MCH 29.3 MCHC 32.5 RDW Std Deviation 42.7 RDW Coeff of [place] 12.9 Plt Count 219 MPV 11.6 Immature Gran % (Auto) 0.200 Neut % (Auto) 56.3 Lymph % (Auto) 28.5 [place] % (Auto) 9.4 Eos % (Auto) 5.1 H Baso % (Auto) 0.5 Absolute Neuts (auto) 4.9 Absolute Lymphs (auto) 2.50 Nucleated RBC % 0 Sodium 139 Potassium 4.0 Chloride 108 H Carbon Dioxide 23.0 Anion Gap 8 BUN 17 Creatinine 0.96 Estim Creat Clear Calc 72.15 Est GFR (MDRD) Af Amer 81 Est GFR (MDRD) Non-Af 67 BUN/Creatinine Ratio 17.7 Glucose 106 Calcium 8.9 Total Bilirubin 0.50 AST 20 ALT 25 Alkaline Phosphatase 46 Total Protein 7.3 Albumin 4.0 Globulin 3.3 Albumin/Globulin Ratio 1.2 Lipase 58 Radiography Diagnostic Testing: Clinical Impression(s) from Imaging Studies Acute Abdomen Series 03/13/24 17:50 IMPRESSION: Normal x-ray examination of the chest, abdomen, and pelvis. Electronically Signed: Waldemar López MD at 18:08 EDT , Acute abdominal x-rays were obtained. There are 4 views. On my independent interpretation, there is no evidence of bowel obstruction or perforation. Radiologist also interpreted the x-rays and agrees. Treatment and Re-Evaluation :: Patient was given IV fluids, morphine, and Zofran. Patient was still having pain on reevaluation. Patient was given a repeat dose of morphine. Patient was advised of her findings. Patient was feeling better after the repeat dose of morphine. Discharge Plan Triage Chief Complaint: Abd Pain ED Provider: Doyle Godfrey Dx/Rx/DC Orders Clinical Impression: Abdominal pain, Colitis Instructions: ED Understanding Colitis Prescriptions: New oxycodone-acetaminophen 5-325 mg tablet 1 tab PO Q6H PRN PRN (Reason: Pain) 3 Days Qty: 12 0RF No Action sertraline 200 mg capsule 200 mg PO DAILY quetiapine 25 mg tablet 25 mg PO DAILY trazodone 50 mg tablet 50 mg PO DAILY metronidazole 500 mg tablet 500 mg PO Q6H Qty: 40 0RF ciprofloxacin HCl 500 mg tablet 500 mg PO BID Qty: 20 0RF dicyclomine 10 mg capsule 20 mg PO TIDAC Qty: 20 0RF famotidine 20 mg tablet 20 mg PO QHS PRN PRN (Reason: indigestion) simvastatin 5 mg tablet 5 mg PO QHS Primary Care Provider: Sophia Padilla Referrals: Sophia Padilla, PARTS EXPEDITER-C [Primary Care Provider] - 3-5 Days Activity Restrictions/Additional Instructions: Continue your antibiotics as prescribed. Continue taking the dicyclomine as prescribed. Print Language: Kinyarwanda Disposition Disposition: Home, Self Care
[2024-03-13] MEDS: Morphine 4 MG/ML Syringe IV ×2 (17:38→18:56)
[2024-03-13] MEDS: Ondansetron 4 MG/2 ML Vial IV (17:38)
[2024-03-13] MEDS: Dicyclomine 20 MG/2 ML Vial IM (17:38)
[2024-03-13] MEDS: 0.9% Normal Saline (1000mL) 1,000 ML 999 ML IV (17:39)
[2024-03-13 17:48] LABS: Absolute Neutrophil Count 4.9 X10^3/uL (2.0-7.7); Basophil# 0.04 X10^3/uL; Basophil% 0.5 % (0-1); Eosinophil# 0.45 X10^3/uL; Eosinophils% 5.1 % (0-5); Hemoglobin 11.7 g/dL (12.0-15.0); Lymphocyte % 28.5 % (19-41); Mean Corp Hgb Conc 32.5 g/dL (32-36); Mean Corpuscular Hgb 29.3 pg (27.0-32.0); Mean Platelet Vol. 11.6 fl (6.2-12.0); Monocyte# 0.82 X10^3/uL; Monocyte% 9.4 % (0-10); NRBC Flagged by Analyzer 0 % (0-5); Neutrophil # 4.93 X10^3/uL (2.7-7.7); Neutrophil % 56.3 % (47-70); Platelet Count 219 K/mm3 (150-450); RBC Distribution Width CV 12.9 % (11.6-14.6); RBC Distribution Width SD 42.7 fl (35.1-43.9); White Blood Count 8.8 K/mm3 (4.4-11.0)
--- NOTE | 2024-03-13 17:50 | RAD_ITS ---
STUDY: X-RAY - ACUTE ABDOMINAL SERIES REASON FOR EXAM: Female, 43 years old. Pain TECHNIQUE: Single view of the chest. Supine, and erect view(s) of the abdomen were obtained. COMPARISON: CT March 12, 2024 FINDINGS: The lungs are clear and expanded. Normal size heart. Normal mediastinum and rayna. Normal visualized pulmonary arteries. Normal visualized aortic arch and descending thoracic aorta. There is a normal bowel gas pattern. The soft tissue structures of the abdomen and pelvis are unremarkable. There are tubal ligation clips. Normal visualized osseous structures. RAD/Acute Abdomen Inc Chest IMPRESSION: Normal x-ray examination of the chest, abdomen, and pelvis. Electronically Signed: Waldemar López MD at 18:08 EDT ,
[2024-03-13 18:06] VITALS: BP 134/75; PULSE 77; RESP 16; TEMP 36.5; O2SAT 99
[2024-03-13 18:15] LABS: ALB/GLOB Ratio 1.2 RATIO (0.9-2.4); AST(SGOT) 20 U/L (15-37); Alanine Aminotransfer ALT/SGPT 25 U/L (13-56); Alkaline Phosphatase 46 U/L (45-117); Anion Gap 8 (5-15); BUN 17 mg/dL (7-18); BUN/Creat Ratio 17.7 RATIO (10-20); Calcium,Total 8.9 mg/dL (8.5-10.1); Chloride 108 mmol/L (98-107); Creatinine, Serum 0.96 mg/dL (0.55-1.02); EST Glomerular Filtration Rate 67 mL/min (>60); Est Glom Filt Rate - Afr Amer 81 mL/min (>60); Estimated Creatinine Clearance 72.15 ml/min; Globulin 3.3 g/dL (2.2-4.2); Glucose 106 mg/dL (74-106); Protein, Total 7.3 g/dL (6.4-8.2); Sodium Level 139 mmol/L (136-145)
[2024-03-13 19:17] LABS: Lipase 58 U/L (13-75)
[2024-03-13 19:45] VITALS: BP 115/64; PULSE 60; RESP 16; O2SAT 100
[2024-03-13 20:38] VITALS: BP 118/65; PULSE 61; RESP 16; TEMP 36.6; O2SAT 99
== END 2024-03-13 20:51 | disposition home or self-care (01) ==
PROVIDERS: Emergency Provider Emergency Medicine; PCP Nurse Practitioner Family; Visit Provider Emergency Medicine
DX: K52.9 Noninfective gastroenteritis and colitis, unspecified (principal); F12.90 Cannabis use, unspecified, uncomplicated; Z79.899 Other long term (current) drug therapy
CPT/HCPCS: 74022; 80053; 83690; 85025; 96361; 96372; 96374; 96375; 96376; 99283; J7030; A4216; J2405

== ENCOUNTER → 2024-03-15 | Outpatient (CLI) | payer BC, SELFPAY ==
[2024-03-15 16:20] LABS: Absolute Lymphocyte Count 1.65 X10^3/uL (0.83-4.51); Absolute Neutrophil Count 3.8 X10^3/uL (2.0-7.7); Basophil# 0.03 X10^3/uL; Basophil% 0.5 % (0-1); Eosinophils% 6.2 % (0-5); Hematocrit 36.4 % (37-47); Hemoglobin 11.8 g/dL (12.0-15.0); Lymphocyte # 1.65 X10^3/ul (0.83-4.51); Lymphocyte % 25.4 % (19-41); Mean Corp Hgb Conc 32.4 g/dL (32-36); Mean Corpuscular Hgb 29.6 pg (27.0-32.0); Mean Corpuscular Volume 91.2 fL (81-99); Mean Platelet Vol. 11.5 fl (6.2-12.0); Monocyte# 0.59 X10^3/uL; Monocyte% 9.1 % (0-10); NRBC Flagged by Analyzer 0 % (0-5); Neutrophil # 3.81 X10^3/uL (2.7-7.7); Neutrophil % 58.5 % (47-70); Platelet Count 212 K/mm3 (150-450); RBC Distribution Width CV 12.9 % (11.6-14.6); Red Blood Count 3.99 M/mm3 (4.2-5.4); White Blood Count 6.5 K/mm3 (4.4-11.0)
[2024-03-15 16:22] LABS: Erythrocyte Sedimentation Rate 9 mm/hr (0-30)
[2024-03-15 16:48] LABS: AST(SGOT) 16 U/L (15-37); Alanine Aminotransfer ALT/SGPT 23 U/L (13-56); Albumin, Serum 3.5 g/dL (3.2-5.0); Alkaline Phosphatase 39 U/L (45-117); Anion Gap 4 (5-15); BUN 15 mg/dL (7-18); BUN/Creat Ratio 16.8 RATIO (10-20); CRP < 2.90 mg/L (0.0-3.0); Calcium,Total 9.2 mg/dL (8.5-10.1); Chloride 110 mmol/L (98-107); Creatinine, Serum 0.89 mg/dL (0.55-1.02); EST Glomerular Filtration Rate 73 mL/min (>60); Est Glom Filt Rate - Afr Amer 88 mL/min (>60); Globulin 3.5 g/dL (2.2-4.2); Glucose 89 mg/dL (74-106); Sodium Level 140 mmol/L (136-145)
[2024-03-19 15:08] LABS: Endomysial Antibody IgA Negative (Negative); Immunoglobulin A 169 mg/dL (87-352); t-Transglutaminase IgA <2 U/mL (0-3)
[2024-03-20 14:10] LABS: ACCA 12 units (0-90); ALCA 7 units (0-60); AMCA 22 units (0-100); gASCA 23 units (0-50)
== END | disposition home or self-care (01) ==
LOC: LAB 15:41
PROVIDERS: PCP Nurse Practitioner Family; Referring Provider Student in an Organized Health Care Education/Training Program; Visit Provider Student in an Organized Health Care Education/Training Program
DX: K52.9 Noninfective gastroenteritis and colitis, unspecified (principal)
CPT/HCPCS: 36415; 80053; 82784; 83516; 85025; 85652; 86036; 86140; 86255; 86671

== ENCOUNTER → 2024-03-16 | Outpatient (CLI) | payer BC, SELFPAY ==
[2024-03-20 15:09] LABS: Giardia Lamblia, Stool EIA Negative (Negative); Pancreatic Elastase, Fecal 487 (>200)
[2024-03-20 21:07] LABS: Calprotectin, Stool 80 ug/g (0-120)
== END | disposition home or self-care (01) ==
LOC: LABSPEC 10:50
PROVIDERS: PCP Nurse Practitioner Family; Referring Provider Student in an Organized Health Care Education/Training Program; Visit Provider Student in an Organized Health Care Education/Training Program
DX: K58.9 Irritable bowel syndrome, unspecified (principal)
CPT/HCPCS: 82653; 83630; 83993; 87329; 87493; 87506

== ENCOUNTER 2024-03-21 09:25 | Day surgery (SDC) | payer BC, SELFPAY ==
[2024-03-21] VITALS (7 sets, daily range): BP systolic 103–139; BP diastolic 68–83; PULSE 54–67; RESP 14–16; TEMP 36.2–36.4; O2SAT 97–100; BMI 35.7
--- NOTE | 2024-03-21 09:44 | PCM.PRE.AN2 ---
ASA Classification* ASA Classification ASA Classification: 2 Assessment & Plan Anesthesia* Anesthesia Assessment Anesthesia Assessment: Discussed sedation and/or anesthesia options, risks, benefits, and alternatives with patient/parents/legal guardian/POA. Questions invited. The patient/parents/legal guardian/POA seems to understand and agrees to proceed with anesthesia plan. Reviewed the physical assessment, medical history, allergy history and patient home medications list prior to surgery/procedure/anesthetic and documented any changes. Performed airway and anesthesia risk assessments. Anesthesia Type Anesthesia Type: MAC Anesthesia Focused Assessment* Airway Assessment Mouth opens: >3 cm Mallampati Score: II Focused Labs Anesthesia Preop lab: CBC WBC 6.5 K/mm3 (4.4-11.0) 03/15/24 15:52 RBC 3.99 M/mm3 (4.2-5.4) L 03/15/24 15:52 Hgb 11.8 g/dL (12.0-15.0) L 03/15/24 15:52 Hct 36.4 % (37-47) L 03/15/24 15:52 Plt Count 212 K/mm3 (150-450) 03/15/24 15:52 CHEMISTRY Potassium 4.0 mmol/L (3.5-5.1) 03/15/24 15:52 Sodium 140 mmol/L (136-145) 03/15/24 15:52 BUN 15 mg/dL (7-18) 03/15/24 15:52 Creatinine 0.89 mg/dL (0.55-1.02) 03/15/24 15:52 Glucose 89 mg/dL (74-106) 03/15/24 15:52 COAG Pre-Assessment Diagnosis/Proposed Procedure Planned Operative Procedure(s): COLONOSCOPY Anesthesia History 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 When Was Last Pacemaker Check QUESTION #4 FULL TEXT: You/Your Family Experience fever (hyperthermia) with Anesthesia Last Oral Intake Last Oral intake: Last Oral Intake NPO since Meds taken in AM with sips of water? Meds patient instructed to take am of surgery PONV PONV - nuclear monitoring technician: PONV - nuclear monitoring technician Female Yes 03/19/24 11:44 HX of Motion Sickness No 03/19/24 11:44 HX of N/V After Surgery No 03/19/24 11:44 Non-Smoker Yes 03/19/24 11:44 Duration of Surgery greater No 03/19/24 11:44 than 60 minutes Number of Risk Factors 2 03/19/24 11:44 PONV Score Moderate Risk 03/19/24 11:44 Height & Weight Height & Weight: Anesthesia: Height & Weight Height 5 ft 03/13/24 17:05 Respiratory Assessment Respiratory Assessment - nuclear monitoring technician: Respiratory Tract Infection Hx - nuclear monitoring technician Hx Respiratory Tract Infection No 03/19/24 11:44 STOP Sleep Apnea STOP Sleep Apnea - nuclear monitoring technician: STOP Sleep Apnea - nuclear monitoring technician Hx Hypertension No 03/19/24 11:44 Hx Sleep Apnea No 03/19/24 11:44 CPAP BIPAP Do you snore loudly (louder No 03/19/24 11:44 than talking or can be heard Do you often feel tired/ No 03/19/24 11:44 fatigued/ sleepy during daytime? Has anyone observed you stop No 03/19/24 11:44 breathing during sleep? STOP Results Negative 03/19/24 11:44 QUESTION #5 FULL TEXT : Do you snore loudly (louder than talking or can be heard through closed doors)? 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 Specify any problems Hx of Preganancy in last 3 No 03/19/24 11:44 Months Nurse Filling Out Transfusion VCHRISTIN 03/19/24 11:44 & Questions: Date: 03/19/24 03/19/24 11:44 Time: 11:46 03/19/24 11:44 Patient unable to answer at this time (ie. confused, unrespo /Reproduction History /Reproductive History - nuclear monitoring technician: /Reproductive Hx- nuclear monitoring technician Hx Now No 03/19/24 11:44 Gestational Age (in weeks): EDC: Hx Hx Para Hx Section SAB No 03/19/24 11:44 Active Medications Active Medications: Current Medications Generic Name Dose Route Start Last Admin Trade Name Freq PRN Reason Stop Dose Admin Lactated Ringer's 1,000 mls @ 15 mls/hr 03/21/24 09:30 IV .Q48H JULIANA PFSH Medical History Wears glasses Marijuana use History of steroid therapy Arthritis High cholesterol Easy bruising Back pain Migraine headache Gastric reflux Non-smoker Shortness of breath on exertion History of edema Acute Crohn's disease Rheumatoid arthritis Bilateral carpal tunnel syndrome Left hand pain Right hand pain Home Medications ?Medication ?Instructions ?Recorded ?Last Taken ?Type quetiapine 25 mg tablet 25 mg PO DAILY 10/11/22 03/13/24 History sertraline 200 mg capsule 200 mg PO DAILY 10/11/22 03/13/24 History trazodone 50 mg tablet 50 mg PO DAILY 10/11/22 03/12/24 History ciprofloxacin HCl 500 mg tablet 500 mg PO BID #20 TABLETS 03/12/24 03/13/24 Rx metronidazole 500 mg tablet 500 mg PO Q6H #40 tabs 03/12/24 03/13/24 Rx famotidine 20 mg tablet 20 mg PO QHS PRN PRN indigestion 03/13/24 Unknown History oxycodone-acetaminophen 5 mg-325 1 tab PO Q6H PRN PRN Pain 3 days 03/13/24 Unknown Rx mg tablet #12 TABLETS simvastatin 5 mg tablet 5 mg PO QHS cholesterol 03/13/24 03/12/24 History hyoscyamine sulfate 0.125 mg tablet 0.125 mg PO BID-QID PRN dyspepsia 03/15/24 Unknown Rx #30 tabs loratadine 10 mg tablet 10 mg PO DAILY 03/19/24 Unknown History (Allerclear) Allergy/AdvReac Type Severity Reaction Status Date / Time Penicillins Allergy Hives Verified 03/21/24 09:39 Family History Father Adult T-cell lymphoma Other Cancer Surgical History History of endometrial ablation History of tubal ligation H/O section Social History Smoking Status: Never smoker alcohol intake: current alcohol intake frequency: holidays/special occasions only substance use type: marijuana Review of Systems (Anesthesia) ROS Narrative System reviewed and no additional complaints, except as documented.
[2024-03-21] MEDS: Lactated Ringers 1,000 ML 15 ML IV (09:49)
--- NOTE | 2024-03-21 10:30 | COLBX_PTH ---
PATIENT: CARA SETHI LOC: EN U#:[id number] AGE/SX: 43/F ROOM: RE03/21/[address]: Dr. Tenzin Castillo DO : 1980 BED: DIS: 03/21/2024 SPEC #: [id number] RECD: 03/21/24 13:07 STATUS: CHRIS MELISSA #: [id number] SREEDHAR: 03/21/24 10:[address]: Tenzin Castillo DEPT: SURGICAL PATHOLOGY RECD BY: Aditya Machado ENTERED: 03/21/24 13:41 SP TYPE: COLON BX DIXON DR: Sophia Padilla, TECHNICAL ILLUSTRATOR-C Tissues: A - Ileum, NOS B - COLON BIOPSY Procedures: Surgery Specimen Level IV HEADER OPERATION: Colonoscopy with biopsies PRE-OP DIAGNOSIS: Colitis TISSUE SUBMITTED: A- Terminal ileum biopsy, B- Random colon biopsy MICROSCOPIC DIAGNOSIS A. Terminal ileum, biopsy: No pathologic change. B. Colon, random biopsy: No pathologic change. AM/ 03/22/2024 MICROSCOPIC DESCRIPTION Slides are reviewed. GROSS DESCRIPTION A. Received in fixative is one container labeled with the patient's name and designated Terminal ileum biopsy. The specimen consists of multiple irregular fragments of light forbes soft tissue that in aggregate measure 1.2 x 0.3 x 0.1 cm. The specimen is totally submitted in one cassette. B. Received in fixative is one container labeled with the patient's name and designated Random colon biopsy. The specimen consists of multiple irregular fragments of light forbes soft tissue that in aggregate measure 2.0 x 0.4 x 0.1 cm. The specimen is totally submitted in one cassette. / 03/21/2024 TC:5 CPT:96614d0
--- NOTE | 2024-03-21 10:55 | HP.PCM_ITS ---
History and Physical Date of Admission: 03/21/24 Nurse's Note: OV 03.15.24 Pt here for f/u from ED for abdominal pain and diarrhea. Pt reports she has had GI sx all her life but the past four months she has been experiencing an increase in hives, bloating, abdominal pain, diarrhea, nausea and vomiting. Denies blood in stools but hasn't been paying attention. Pt takes dicyclomine, famotidine,and metronidazole daily but finds little relief. [facility] Medical History Acute Crohn's disease Rheumatoid arthritis Bilateral carpal tunnel syndrome Left hand pain Right hand pain Surgical History History of endometrial ablation History of tubal ligation H/O section Family History Father Adult T-cell lymphomaOther Cancer Social History Smoking Status: Never smoker alcohol intake: current alcohol intake frequency: holidays/special occasions only substance use type: marijuana HPI HPI Chief Complaint: diarrhea, abdominal cramping Details: CARA SETHI, is a 43 F who presents to the office today for establishment with [facility]. She has had GI issues since her teen but has never been worked up. She noticed around 4 weeks ago she started getting hives all over her body that were not triggered by anything. Then, about a week ago, she started having severe abdominal cramping and diarrhea that sent her to the ED twice. She was given ciprofloxacin, metronidazole, famotidine, dicyclomine and oxycodone. She continues to have the cramping and diarrhea. She has occasional constipation and n/v. CT abdomen/pelvis 03.12.24: Findings in keeping with pancolitis. There is thickening of the terminal ileum. Crohn''s disease should be ruled out. ROS Const Constitutional: Positive for fatigue, fever(s), headache(s) and weight change ENT ENT: Positive for headache(s); No difficulty swallowing Gastro GI: Positive for abdominal pain, belching, bloating, change in bowel habits, constipation, diarrhea, heartburn, excessive flatus, nausea/dyspepsia and vomiting; No change in stool character, coffee ground emesis, cramping, difficulty swallowing, feeling full early, incontinent of stools, Vomiting blood/hematemesis, Blood in stool, loose stools, Black,tarry stools, pain with swallowing or other Musc Musculoskeletal: Positive for joint pain, back pain, joint swelling, muscle cramps, muscle weakness, numbness, stiffness, tingling, Arthritis and leg pain at night Skin Skin: Positive for dry skin, itchy eyes and rash (hives); No yellowing of the eye Neuro Neurology: Positive for headache(s), numbness and tingling Psych Psychiatric: Positive for anxiety and Positive for depression Endo Endocrine: Positive for fatigue and weight change Aller/Imm Allergy/Immunologic: Positive for itchy eyes [place]/Lymp Hematologic/Lymphatic: Positive for easy bruising; No easy bleeding Exam Const General: cooperative and comfortable Nutritional Appearance: average body habitus and well nourished HENMT Head: normal to inspection Ears: hearing grossly normal bilaterally Nose: external nose normal Face and sinus: normal facial exam Mouth: oral mucosae normal Throat: posterior oropharynx normal Eyes General: appearance normal, both eyes and all related structures Neck Neck: normal visual inspection Chest Chest palpation & inspection: normal inspection of the chest and normal palpation of entire chest wall Resp Effort & Inspection: normal respiratory effort Auscultation: Bilateral: Clear to Auscultation Cardio Palpation: normal PMI Rate: regular rate Rhythm: regular rhythm GI Inspection: normal to inspection Auscultation: normal bowel sounds Percussion: normal to percussion Palpation: no hepatosplenomegaly Skin General: no rashes or lesions noted Neuro General: patient alert Extrem General: normal to inspection Psych Affect: normal affect Assessment and Plan Assessment and Plan (1) Colitis: Status: Acute Plan: Patient is here today for establishment with [facility]. She has a long hx of abdominal pain and diarrhea which has been worsening since last week. CT showed thickening of ileum. Differential diagnosis includes IBD, celiac, IBS and EPI -We will start with lab tests for IBD panel, CRP, ESR, CBC and CMP -Will order stool tests for C.dif, Giardia, enteric pathogen panel, lactoferrin, calprotectin,and pancreatic elastase -She will also get scheduled for colonoscopy -I will call her when her labs are back to discuss treatment plans -Will consider MR enterography pending lab results -Patient will try hyoscyamine instead of dicyclomine as it did not work for her Orders: Orders Calprotectin, Stool Today K52.9 - Noninfective gastroenteritis and colitis, unspecified CRP Today K52.9 - Noninfective gastroenteritis and colitis, unspecified Stool Lactoferrin/WBC Today K58.9 - Irritable bowel syndrome without diarrhea Erythrocyte Sed Rate Today K52.9 - Noninfective gastroenteritis and colitis, unspecified Comprehensive Metabolic Profil Today K52.9 - Noninfective gastroenteritis and colitis, unspecified CBC W/Diff, Automated Today K52.9 - Noninfective gastroenteritis and colitis, unspecified IBD Expanded Profile Today K52.9 - Noninfective gastroenteritis and colitis, unspecified CDIFF (PCR) Today K52.9 - Noninfective gastroenteritis and colitis, unspecified Giardia [place], Stool EIA Today K52.9 - Noninfective gastroenteritis and co litis, unspecified Pancreatic Elastase, Fecal Today K52.9 - Noninfective gastroenteritis and colitis, unspecified Celiac Disease Profile Today K52.9 - Noninfective gastroenteritis and colitis, unspecified ENTERIC PATHOGEN PANEL STOOL Today K58.9 - Irritable bowel syndrome without diarrhea Medications: New hyoscyamine sulfate 0.125 mg PO BID-QID PRN 30 tabs 3RF dyspepsia
--- NOTE | 2024-03-21 11:28 | OP.COLON_ITS ---
Patient Name: Shagufta Box Procedure Date: 03/21/2024 10:52 AM Date of : 1980 Age: 43 Procedure: Colonoscopy Indications: Generalized abdominal pain, Clinically significant diarrhea of unexplained origin Providers: Tenzin Castillo DO Referring MD: Tenzin Castillo DO Medicines: Monitored Anesthesia Care Patient Profile: This is a 43 year old female. Refer to note in patient chart for documentation of history and physical. Last Colonoscopy: none. The patient's first colonoscopy is today. Complications: No immediate complications. Procedure: Pre-Anesthesia Assessment: - Prior to the procedure, a History and Physical was performed, and patient medications and allergies were reviewed. The patient is competent. The risks and benefits of the procedure and the sedation options and risks were discussed with the patient. All questions were answered and informed consent was obtained. Patient identification and proposed procedure were verified by the physician in the pre-procedure area. Mental Status Examination: alert and oriented. Airway Examination: normal oropharyngeal airway and neck mobility. Respiratory Examination: clear to auscultation. CV Examination: normal. Prophylactic Antibiotics: The patient does not require prophylactic antibiotics. Prior Anticoagulants: The patient has taken no anticoagulant or antiplatelet agents except for NSAID medication. ASA Grade Assessment: II - A patient with mild systemic disease. After reviewing the risks and benefits, the patient was deemed in satisfactory condition to undergo the procedure. The anesthesia plan was to use monitored anesthesia care (MAC). Immediately prior to administration of medications, the patient was re-assessed for adequacy to receive sedatives. The heart rate, respiratory rate, oxygen saturations, blood pressure, adequacy of pulmonary ventilation, and response to care were monitored throughout the procedure. The physical status of the patient was re-assessed after the procedure. After I obtained informed consent, the scope was passed under direct vision. Throughout the procedure, the patient's blood pressure, pulse, and oxygen saturations were monitored continuously. The colonoscope was introduced through the anus and advanced to the terminal ileum, with identification of the appendiceal orifice and IC valve. The colonoscopy was performed with ease. The patient tolerated the procedure well. The quality of the bowel preparation was adequate. The terminal ileum, ileocecal valve, appendiceal orifice, and rectum were photographed. Scope In: 11:07:59 AM Scope Withdrawal Time 0 hours 11 minutes 8 seconds Scope Out: 11:21:35 AM Total Procedure Duration Time 0 hours 13 minutes 36 seconds Findings: The perianal and digital rectal examinations were normal. An area of mildly congested mucosa was found in the recto-sigmoid colon, in the sigmoid colon and in the transverse colon. Biopsies were taken with a cold forceps for histology. Verification of patient identification for the specimen was done. Estimated blood loss was minimal. A patchy area of the terminal ileum was congested. Several biopsies were obtained with cold forceps for histology randomly in the rectum, in the sigmoid colon, in the descending colon, in the transverse colon, in the ascending colon and in the terminal ileum. Verification of patient identification for the specimen was done. Estimated blood loss was minimal. Impression: - Congested mucosa in the recto-sigmoid colon, in the sigmoid colon and in the transverse colon. Biopsied. - Congested mucosa in the terminal ileum. - Several biopsies were obtained in the rectum, in the sigmoid colon, in the descending colon, in the transverse colon, in the ascending colon and in the terminal ileum. Recommendation: - Discharge patient to home. - Resume previous diet. - Continue present medications. - Await pathology results. - Repeat colonoscopy in 5 years for surveillance. Procedure Code(s): --- Professional --- 98159, Colonoscopy, flexible; with biopsy, single or multiple CPT copyright 2021 [employer]. All rights reserved. The codes documented in this report are preliminary and upon associate teacher review may be revised to meet current compliance requirements. Tenzin Castillo DO 03/21/2024 11:28:10 AM This report has been signed electronically. Number of Addenda: 0 Note Initiated On: 03/21/2024 10:52 AM
--- NOTE | 2024-03-21 11:29 | OP.CCLET_ITS ---
03/21/2024 Maria Victoria Milner Re : Colonoscopy procedure for Shagufta Carvajalr Randy This procedure was performed on Thursday, March 21, 2024. My impressions and recommendations are as follows: Impressions : - Congested mucosa in the recto-sigmoid colon, in the sigmoid colon and in the transverse colon. Biopsied. - Congested mucosa in the terminal ileum. - Several biopsies were obtained in the rectum, in the sigmoid colon, in the descending colon, in the transverse colon, in the ascending colon and in the terminal ileum. Recommendations : - Discharge patient to home. - Resume previous diet. - Continue present medications. - Await pathology results. - Repeat colonoscopy in 5 years for surveillance. My findings are described in the full procedure note, which is enclosed. If I can be of further assistance, please feel free to contact me at . Sincerely, Tenzin Castillo, 03/21/2024 11:28:10 AM This report has been signed electronically.
--- NOTE | 2024-03-21 11:32 | PCM.POST.ANE ---
Anesthesia: Postop Eval I Current Vital Signs Temperature: 97.2 F Pulse Rate: 64 Blood Pressure: 103/68 Respiratory Rate: 16 Pulse Ox: 97 Oxygen Delivery Method: Room Air Assessment Airway patent: Yes Spontaneous unlabored respirations: Yes Mental status: Asleep nausea: No Vomiting: No Anesthesia Complication: No Fluid Hydration Crystalloid volume administer (ml): 600 Total IV fluid infused: 600 Progress Note Anesthesia document: Postop Eval 1 completed: Yes
--- NOTE | 2024-03-21 12:17 | PCM.POSTANE2 ---
Anesthesia Postop Eval I Sum Postop Eval Completion status Anesthesia document: Postop Eval 1 completed: Yes Anesthesia Postop Eval I Summary Anesthesia Postop Eval I Summary: Anesthesia Postop Eval I: Assessment Summary Airway patent Yes 03/21/24 11:33 [email or web address] Spontaneous unlabored Yes 03/21/24 11:33 [email or web address] respirations Mental status Asleep 03/21/24 11:33 [email or web address] nausea No 03/21/24 11:33 [email or web address] Vomiting No 03/21/24 11:33 [email or web address] Anesthesia Postop Eval I: Fluid Summary Crystalloid volume administer 600 03/21/24 11:33 [email or web address] (ml) Colloids volume administered ( ml) Blood Product volume administered (ml) Total IV fluid infused 600 03/21/24 11:33 [email or web address] Anesthesia Postop Eval I: Summary Notes Anesthesia Complication No 03/21/24 11:33 [email or web address] Anesthesia Complication Comment: Post-operative progress note Anesthesia: Postop Eval II Evaluation Mental status: Awake and Calm Pain Level: 0 nausea: No Vomiting: No Complications Anesthesia Complication: No
== END 2024-03-21 12:19 | disposition home or self-care (01) ==
LOC: EN 09:26 → AC 09:28
PROVIDERS: PCP Nurse Practitioner Family; Referring Provider Internal Medicine Gastroenterology; Visit Provider Internal Medicine Gastroenterology
PROC: 0DJD8ZZ Inspection of Lower Intestinal Tract, Via Natural or Artificial Opening Endoscopic (ICD-10-PCS; CPT 45378; principal; 2024-03-21 10:25)
DX: R10.9 Unspecified abdominal pain (principal); K52.9 Noninfective gastroenteritis and colitis, unspecified; K63.89 Other specified diseases of intestine; Z98.51 Tubal ligation status
CPT/HCPCS: 45380; 88305; J7120; J2405

== ENCOUNTER → 2024-04-07 | Outpatient (CLI) | payer BC, SELFPAY ==
[2024-04-07 07:51] LABS: Absolute Lymphocyte Count 1.46 X10^3/uL (0.83-4.51); Absolute Neutrophil Count 2.5 X10^3/uL (2.0-7.7); Basophil# 0.03 X10^3/uL; Basophil% 0.6 % (0-1); Eosinophil# 0.51 X10^3/uL; Hematocrit 40.6 % (37-47); Hemoglobin 13.3 g/dL (12.0-15.0); Lymphocyte # 1.46 X10^3/ul (0.83-4.51); Lymphocyte % 28.7 % (19-41); Mean Corp Hgb Conc 32.8 g/dL (32-36); Mean Corpuscular Hgb 29.5 pg (27.0-32.0); Mean Platelet Vol. 10.7 fl (6.2-12.0); Monocyte# 0.58 X10^3/uL; Monocyte% 11.4 % (0-10); NRBC Flagged by Analyzer 0 % (0-5); Neutrophil # 2.49 X10^3/uL (2.7-7.7); Neutrophil % 48.9 % (47-70); Platelet Count 213 K/mm3 (150-450); RBC Distribution Width CV 12.6 % (11.6-14.6); RBC Distribution Width SD 41.8 fl (35.1-43.9); Red Blood Count 4.51 M/mm3 (4.2-5.4); White Blood Count 5.1 K/mm3 (4.4-11.0)
[2024-04-07 10:35] LABS: AST(SGOT) 15 U/L (15-37); Alanine Aminotransfer ALT/SGPT 28 U/L (13-56); Albumin, Serum 3.9 g/dL (3.2-5.0); Alkaline Phosphatase 42 U/L (45-117); BUN 13 mg/dL (7-18); Bilirubin, Direct 0.19 mg/dL (0.00-0.30); CRP < 2.90 mg/L (0.0-3.0); Creatinine, Serum 0.83 mg/dL (0.55-1.02); EST Glomerular Filtration Rate 79 mL/min (>60); Est Glom Filt Rate - Afr Amer 96 mL/min (>60); Globulin 3.8 g/dL (2.2-4.2); Glucose 104 mg/dL (74-106); Protein, Total 7.7 g/dL (6.4-8.2); Rheumatoid Factor < 10.0 IU/mL (<15); Uric Acid 3.9 mg/dL (2.6-6.0)
[2024-04-09 10:09] LABS: Vitamin D,25 Hydroxy 30.6 ng/mL
[2024-04-10 13:09] LABS: Anti-Nuclear Antibody Test Positive (.)
[2024-04-11 00:07] LABS: Endomysial Antibody IgA Negative (Negative); Immunoglobulin A 202 mg/dL (87-352); Thyroid Peroxidase AB < 9 IU/mL (0-34); t-Transglutaminase IgA <2 U/mL (0-3)
== END | disposition home or self-care (01) ==
LOC: LAB 07:16
PROVIDERS: PCP Nurse Practitioner Family; Referring Provider Specialist; Visit Provider Specialist
DX: J30.9 Allergic rhinitis, unspecified (principal); J45.50 Severe persistent asthma, uncomplicated; R06.00 Dyspnea, unspecified; J32.9 Chronic sinusitis, unspecified; T78.3XXD Angioneurotic edema, subsequent encounter; T78.09XD Anaphylactic reaction due to other food products, subsequent encounter; Z91.038 Other insect allergy status; E55.9 Vitamin D deficiency, unspecified; E07.9 Disorder of thyroid, unspecified; D84.9 Immunodeficiency, unspecified; L13.0 Dermatitis herpetiformis
CPT/HCPCS: 36415; 80076; 82306; 82565; 82784; 82947; 83516; 83520; 84443; 84520; 84550; 85025; 86038; 86140; 86255; 86376; 86431

== ENCOUNTER 2024-04-20 13:40 | Emergency (ER) | payer BC, SELFPAY ==
[2024-04-20 13:41] VITALS: BP 128/89; PULSE 86; RESP 16; TEMP 35.8; O2SAT 97; BMI 35.5
[2024-04-20 15:07] VITALS: BP 94/53; PULSE 59
[2024-04-20 15:22] LABS: Absolute Lymphocyte Count 1.33 X10^3/uL (0.83-4.51); Absolute Neutrophil Count 4.7 X10^3/uL (2.0-7.7); Basophil# 0.03 X10^3/uL; Basophil% 0.4 % (0-1); Eosinophil# 0.25 X10^3/uL; Eosinophils% 3.6 % (0-5); Hematocrit 43.5 % (37-47); Lymphocyte # 1.33 X10^3/ul (0.83-4.51); Lymphocyte % 19.2 % (19-41); Mean Corp Hgb Conc 32.2 g/dL (32-36); Mean Corpuscular Hgb 29.4 pg (27.0-32.0); Mean Corpuscular Volume 91.4 fL (81-99); Mean Platelet Vol. 11.3 fl (6.2-12.0); Monocyte# 0.59 X10^3/uL; Monocyte% 8.5 % (0-10); NRBC Flagged by Analyzer 0 % (0-5); Neutrophil % 68.2 % (47-70); Platelet Count 223 K/mm3 (150-450); RBC Distribution Width CV 12.4 % (11.6-14.6); RBC Distribution Width SD 41.9 fl (35.1-43.9); Red Blood Count 4.76 M/mm3 (4.2-5.4); White Blood Count 6.9 K/mm3 (4.4-11.0)
[2024-04-20 15:39] LABS: Internal QC Validated? YES +Cl - CLEAR BKGD; Pregnancy, Serum, hCG Quali. NEGATIVE Negative
[2024-04-20 15:40] LABS: Record Kit Lot#, Serum Preg. 772476
[2024-04-20 15:44] LABS: Bacteria 0 SEEN /hpf (None Seen); Red Blood Cells-Urine 0 SEEN /hpf (0-5)
[2024-04-20 15:46] LABS: Color, Urine Yellow (Yellow); Glucose, Dipstick Normal (Normal); Ketone-Dipstick Negative (Negative); Leukocyte Esterase-Dipstick Negative /ul (Negative); Nitrite-Dipstick Negative (Negative); Occult Blood-Urine Negative /ul (Negative); Protein-Dipstick 30 mg/dl (Negative); Specific Gravity, Urine 1.015 (1.002-1.030); Urine Bilirubin Dipstick Negative (Negative); Urine Clarity Clear (Clear); Urine Urobilinogen Normal (Normal)
[2024-04-20 15:46] LABS: ALB/GLOB Ratio 1.1 RATIO (0.9-2.4); AST(SGOT) 18 U/L (15-37); Alanine Aminotransfer ALT/SGPT 38 U/L (13-56); Albumin, Serum 4.4 g/dL (3.2-5.0); Alkaline Phosphatase 54 U/L (45-117); Anion Gap 5 (5-15); BUN 18 mg/dL (7-18); BUN/Creat Ratio 19.4 RATIO (10-20); Calcium,Total 9.7 mg/dL (8.5-10.1); Chloride 106 mmol/L (98-107); Creatinine, Serum 0.93 mg/dL (0.55-1.02); EST Glomerular Filtration Rate 69 mL/min (>60); Est Glom Filt Rate - Afr Amer 84 mL/min (>60); Estimated Creatinine Clearance 72.77 ml/min; Glucose 94 mg/dL (74-106); Potassium 4.1 mmol/L (3.5-5.1); Protein, Total 8.4 g/dL (6.4-8.2); Sodium Level 139 mmol/L (136-145)
[2024-04-20 15:53] LABS: Mucous, Urine 1+ /hpf (<or=2+); Squamous Epithelial Cells - UA 0-5 SEEN /hpf (5-10)
[2024-04-20 15:54] LABS: Amorphous Sediment 1+; Hyaline Cast 0-5 SEEN /lpf (0-5); White Blood Cells 0-5 SEEN /hpf (0-5)
--- NOTE | 2024-04-20 16:10 | CT_ITS ---
STUDY: CT ABDOMEN AND PELVIS WITH CONTRAST REASON FOR EXAM: Female, 43 years old. abd pain, BRBPR RADIATION DOSAGE (If Supplied By Facility): CTDIvol = ( 14.42 ) mGy, DLP = ( 887.12 ) mGycm TECHNIQUE: Transaxial images were obtained from the dome of the diaphragm to the symphysis pubis without oral contrast. IV 100mL Isovue-370 was administered. Sagittal and coronal images were reconstructed. Individualized dose optimization techniques were used for this CT. COMPARISON: 03/12/2024. FINDINGS: The visualized lung bases are unremarkable. The visualized portions of the heart are within normal limits. Normal liver. Normal gallbladder and extrahepatic biliary system. Normal spleen. Normal pancreas. Normal bilateral adrenal glands. Normal right kidney. Normal left kidney. Evaluation of the GI tract is limited by absence of oral contrast. Cannot exclude stomach wall thickening. No dilated loops of bowel or evidence for obstruction. Cannot exclude segmental thickening of the eddy of the small bowel. Although large bowel wall thickness cannot be adequately assessed without oral contrast, the appearance is markedly improved since previous study. Moderate diffuse fecal retention. Appendix within normal limits. Normal abdominal aorta. Normal inferior vena cava. Normal retroperitoneum. Nondistended urinary bladder. Normal visualized uterus. Normal abdominal wall. Normal osseous structures. CT/Abdomen/Pelvis W IV Cont ONLY IMPRESSION: Evaluation of GI tract limited by the absence of oral contrast. Markedly improved appearance of the large bowel since previous study. No other definite acute or significant abnormality seen. Electronically Signed: Ronnell Gutiérrez MD at 17:24 EDT ,
--- NOTE | 2024-04-20 16:22 | ED.VIS.GI ---
HPI HPI - GI History of Present Illness Chief Complaint: GI Bleed Informant: patient Narrative Narrative: Patient is a 43-year-old female is currently undergoing a workup for possible inflammatory bowel disease with Dr. Castillo presenting with worsening diarrhea, crampy abdominal pain and bright red blood per rectum today. Patient states that she recently had a colonoscopy and also completed a course of vancomycin for possible C. difficile about 2 weeks ago. Her colonoscopy was on 03/21/2024. She did have some inflammation at the terminal ileum. She notes that she is also getting evaluated by allergy because she is been having issues with hives. She notes over the past 24 to 48 hours she has had increased abdominal discomfort and yesterday started having worsening diarrhea again. She states today she had diarrhea and pink blood in her stool. She thinks that it was from her. (Note she has very light periods after having a uterine ablation) but then when she wiped her rectum noticed there was more blood coming from there and there was a lot of blood in the toilet bowl. She notes that she has been feeling achy and having chills but is not sure if she has had a fever. She spoke with Dr. Castillo's office and they recommend she come to the ER especially now that she is having blood in her stool. Does not report any nausea or vomiting. Notes that she did feel like she was going to pass out when she was getting her IV today which is usual for her. States she never had that happen before. [facility] Medical History Wears glasses Marijuana use History of steroid therapy Arthritis High cholesterol Easy bruising Back pain Migraine headache Gastric reflux Non-smoker Shortness of breath on exertion History of edema Acute Crohn's disease Rheumatoid arthritis Bilateral carpal tunnel syndrome Left hand pain Right hand pain Home Medications ?Medication ?Instructions ?Recorded ?Last Taken ?Type quetiapine 25 mg tablet 25 mg PO DAILY 10/11/22 03/13/24 History sertraline 200 mg capsule 200 mg PO DAILY 10/11/22 03/13/24 History trazodone 50 mg tablet 50 mg PO DAILY 10/11/22 03/12/24 History ciprofloxacin HCl 500 mg tablet 500 mg PO BID #20 TABLETS 03/12/24 03/13/24 Rx metronidazole 500 mg tablet 500 mg PO Q6H #40 tabs 03/12/24 03/13/24 Rx famotidine 20 mg tablet 20 mg PO QHS PRN PRN indigestion 03/13/24 Unknown History oxycodone-acetaminophen 5 mg-325 1 tab PO Q6H PRN PRN Pain 3 days 03/13/24 Unknown Rx mg tablet #12 TABLETS simvastatin 5 mg tablet 5 mg PO QHS cholesterol 03/13/24 03/12/24 History loratadine 10 mg tablet 10 mg PO DAILY 03/19/24 Unknown History (Allerherbertar) colestipol 1 gram tablet 1 g PO ONCE #30 tabs 03/27/24 Unknown Rx hyoscyamine sulfate 0.125 mg tablet 0.25 mg (2 x 0.125 mg) PO BID-QID 03/27/24 Unknown Rx PRN dyspepsia #30 tabs dicyclomine 10 mg capsule 10 mg PO Q6H 2 weeks #56 caps 04/20/24 Unknown Rx vancomycin 125 mg capsule 125 mg PO Q6H 2 weeks #56 caps 04/20/24 Unknown Rx Allergy/AdvReac Type Severity Reaction Status Date / Time Penicillins Allergy Hives Verified 04/20/24 13:40 Family History Father Adult T-cell lymphoma Other Cancer Surgical History History of endometrial ablation History of tubal ligation H/O section Social History Smoking Status: Never smoker alcohol intake: current alcohol intake frequency: holidays/special occasions only substance use type: marijuana ROS ROS ED Constitutional Constitutional ED: Reports chills and sweats; Denies fever(s) Cardiovascular Cardiovascular: Denies chest pain Respiratory/Chest Respiratory/Chest: Denies cough Gastrointestinal Gastrointestinal: Reports abdominal pain, diarrhea and other Details: Reports blood in her stool ; Denies nausea or vomiting Genitourinary Genitourinary ED: Denies dysuria or hematuria Musculoskeletal Musculoskeletal: Denies arthralgias or myalgias Integumentary Reports rash Neurologic Neurologic: Denies paresthesias or weakness Hematologic/Lymphatic Hematologic/Lymphatic: Denies easy bleeding or easy bruising Allergic/Immunologic Allergic/Immunologic ED: Reports urticaria EXAM Physical Exam Const Vital Signs: 04/20/24 13:41 04/20/24 15:07 04/20/24 17:00 Temperature 96.4 F L 98 F Temperature Source Temporal Oral Pulse Rate 86 59 L 70 Respiratory Rate 16 13 Blood Pressure 128/89 H 94/53 L 132/81 H Blood Pressure Mean 102 66 98 Pulse Ox 97 99 Oxygen Delivery Method Room Air Room Air 04/20/24 18:00 04/20/24 18:16 Temperature 97.8 F Temperature Source Pulse Rate 75 75 Respiratory Rate 18 16 Blood Pressure 112/68 120/78 Blood Pressure Mean 82 92 Pulse Ox 97 98 Oxygen Delivery Method Room Air Positive well nourished and well developed General Appearance ED: well developed and NAD HEENT Reports moist mucous membranes Eyes PERRL General Eye ED: Negative for scleral icterus Neck supple Resp normal respiratory effort and clear to auscultation bilaterally Cardio regular rate and regular rhythm GI non-tender Inspection: Negative for abdominal distention Auscultation: normoactive bowel sounds Palpation: soft and tender LLQ; Negative for guarding Extremity full ROM General Extremety ED: Negative for edema General Extremity: Negative for edema Neuro Sensorium / Orientation: alert, oriented to person, oriented to place and oriented to time Motor Exam: Negative for general weakness Psych mental status grossly normal and thought process normal Skin Skin Narrative: Mild scattered raised erythematous rash the patient reports itchy consistent with some chronic urticaria MDM MDM MDM Narrative Medical decision making narrative: Patient is evaluated for worsening diarrhea, bright red blood per rectum and crampy abdominal pain. Recently had evaluation for diarrhea and was diagnosed with C. difficile. Completed a course of this. Denies any recent medications otherwise. Differential includes colitis, infectious versus ischemic. Lower suspicion for inflammatory bowel disease given her recent negative Pap samples, diverticulitis and small bowel obstruction. Patient is not have any obvious bleeding on my exam and has normal rectal exam. Is Hemoccult positive. Vital signs are normal in the emergency room. CBC and CMP largely normal. Lactate is normal. Urinalysis is largely normal. CT of the abdomen pelvis is normal and shows marked improvements of the large bowel compared to prior CT where at that time she did have a diffuse colitis. Case is discussed with NATHALIE Dumont. He reviewed the patient's CT. We will retest the patient for C. difficile and restart her empirically on vancomycin. She will also be placed on scheduled Bentyl. Patient is agreeable this plan of care. She will follow-up outpatient. Patient unable to provide further stool sample for C. difficile study so she was given a prescription for this. History & Record Review Additional record(s) reviewed:: Prior outpatient record, Prior labs (Positive C. difficile PCR and antigen) and Other (EGD-diffuse inflammation) Lab Data Attestation: I reviewed the patient's lab results. Labs: Laboratory Results - last 24 hr 04/20/24 04/20/24 04/20/24 15:00 15:39 16:25 WBC 6.9 RBC 4.76 Hgb 14.0 Hct 43.5 MCV 91.4 MCH 29.4 MCHC 32.2 RDW Std Deviation 41.9 RDW Coeff of Zuleika 12.4 Plt Count 223 MPV 11.3 Immature Gran % (Auto) 0.100 Neut % (Auto) 68.2 Lymph % (Auto) 19.2 Crenshaw % (Auto) 8.5 Eos % (Auto) 3.6 Baso % (Auto) 0.4 Absolute Neuts (auto) 4.7 Absolute Lymphs (auto) 1.33 Nucleated RBC % 0 Sodium 139 Potassium 4.1 Chloride 106 Carbon Dioxide 28.0 Anion Gap 5 BUN 18 Creatinine 0.93 Estim Creat Clear Calc 72.77 Est GFR (MDRD) Af Amer 84 Est GFR (MDRD) Non-Af 69 BUN/Creatinine Ratio 19.4 Glucose 94 Lactic Acid 0.8 Calcium 9.7 Total Bilirubin 0.60 AST 18 ALT 38 Alkaline Phosphatase 54 Total Protein 8.4 H Albumin 4.4 Globulin 4.0 Albumin/Globulin Ratio 1.1 Serum , Qual NEGATIVE Urine Color Yellow Urine Clarity Clear Urine pH 6.0 Ur Specific [place] 1.015 Urine Protein 30 H Urine Glucose (UA) Normal Urine Ketones Negative Urine Occult Blood Negative Urine Nitrite Negative Urine Bilirubin Negative Urine Urobilinogen Normal Ur Leukocyte Esterase Negative Urine RBC 0 SEEN Urine WBC 0-5 SEEN Ur Squamous Epith Cells 0-5 SEEN Amorphous Sediment 1+ Urine Bacteria 0 SEEN Hyaline Casts 0-5 SEEN Urine Mucus 1+ Radiography Diagnostic Testing: Clinical Impression(s) from Imaging Studies Abdomen/Pelvis CT 04/20/24 16:10 IMPRESSION: Evaluation of GI tract limited by the absence of oral contrast. Markedly improved appearance of the large bowel since previous study. No other definite acute or significant abnormality seen. Electronically Signed: Ronnell Gutiérrez MD at 17:24 EDT , Management Discussion w/another healthcare provider: Analytics Specialist Discharge Plan Triage Chief Complaint: GI Bleed ED Provider: Annamarie Morton Dx/Rx/DC Orders Clinical Impression: Diarrhea, Abdominal pain, BRBPR (bright red blood per rectum) Instructions: ED Diarrhea, Unknown Cause, ED Lower GI Bleeding (Stable) Prescriptions: New dicyclomine 10 mg capsule 10 mg PO Q6H 14 Days Qty: 56 0RF vancomycin 125 mg capsule 125 mg PO Q6H 14 Days Qty: 56 0RF No Action sertraline 200 mg capsule 200 mg PO DAILY quetiapine 25 mg tablet 25 mg PO DAILY trazodone 50 mg tablet 50 mg PO DAILY loratadine [Allerclear] 10 mg tablet 10 mg PO DAILY metronidazole 500 mg tablet 500 mg PO Q6H Qty: 40 0RF ciprofloxacin HCl 500 mg tablet 500 mg PO BID Qty: 20 0RF famotidine 20 mg tablet 20 mg PO QHS PRN PRN (Reason: indigestion) simvastatin 5 mg tablet 5 mg PO QHS oxycodone-acetaminophen 5-325 mg tablet 1 tab PO Q6H PRN PRN (Reason: Pain) 3 Days Qty: 12 0RF hyoscyamine sulfate 0.125 mg tablet 0.25 mg PO BID-QID PRN (Reason: dyspepsia) Qty: 30 3RF colestipol 1 gram tablet 1 g PO ONCE Qty: 30 3RF Other Ambulatory Orders: CDIFF (PCR) (Routine) Timeframe: 1 Week Facility: [facility] - Location: Laboratory Ordered By: Dr. Annamarie Morton Primary Care Provider: Sophia Padilla Referrals: Tenzin Castillo DO [Med Staff - Active Staff] - 10-14 Days if not better Sophia Padilla NP-C [Primary Care Provider] - Activity Restrictions/Additional Instructions: Your workup was largely normal today. Your colitis is improved in your CT. The cause of your recurrent symptoms is not clear. We will test you for recurrent C. difficile infection. You been given a prescription for a stool study to drop off at the lab. Take medications as prescribed. If your C. difficile comes back negative you can stop the vancomycin prescribed. You may also take ibuprofen or Tylenol as needed for your discomfort. Please follow-up with Dr. Castillo. Print Language: Afghan Disposition Disposition: Home, Self Care
[2024-04-20] MEDS: 0.9% Normal Saline (1000mL) 1,000 ML 999 ML IV (16:23)
[2024-04-20] MEDS: Ketorolac 15 MG/ML Vial IV (16:23)
[2024-04-20 17:00] VITALS: BP 132/81; PULSE 70; RESP 13; TEMP 36.6; O2SAT 99
[2024-04-20 17:10] LABS: Lactic Acid 0.8 mmol/L (0.4-1.9)
[2024-04-20 18:00] VITALS: BP 112/68; PULSE 75; RESP 18; O2SAT 97
[2024-04-20 18:16] VITALS: BP 120/78; PULSE 75; RESP 16; TEMP 36.6; O2SAT 98
[2024-04-20] MEDS: Dicyclomine 10 MG Capsule PO (18:30)
== END 2024-04-20 18:41 | disposition home or self-care (01) ==
PROVIDERS: Emergency Provider Emergency Medicine; PCP Nurse Practitioner Family; Visit Provider Emergency Medicine
DX: R19.7 Diarrhea, unspecified (principal); R10.9 Unspecified abdominal pain; K92.2 Gastrointestinal hemorrhage, unspecified; F12.90 Cannabis use, unspecified, uncomplicated
CPT/HCPCS: 74177; 80053; 81001; 82274; 83605; 84703; 85025; 96360; 99283; J7030; Q9967

== ENCOUNTER → 2024-04-27 | Outpatient (CLI) | payer BC, SELFPAY ==
[2024-04-28 18:09] LABS: Anti-Centromere B Ab <0.2 AI (0.0-0.9); Anti-Chromatin 0.2 AI (0.0-0.9); Anti-Jo <0.2 AI (0.0-0.9); Anti-Scleroderma-70 AB <0.2 AI (0.0-0.9); Anti-dsDNA Ab 1 IU/mL (0-9); RNP Ab <0.2 AI (0.0-0.9); SJOGREN'S Anti-SS-A test < 0.2 AI (0.0-0.9); SJOGREN'S Anti-SS-B test < 0.2 AI (0.0-0.9); Smith Ab <0.2 AI (0.0-0.9)
== END | disposition home or self-care (01) ==
LOC: LAB 08:40
PROVIDERS: PCP Nurse Practitioner Family
DX: R19.7 Diarrhea, unspecified (principal); R10.9 Unspecified abdominal pain
CPT/HCPCS: 36415; 86225; 86235

== ENCOUNTER 2024-05-09 10:00 | Emergency (ER) | payer BC, SELFPAY ==
[2024-05-09 10:01] VITALS: BP 102/86; PULSE 86; RESP 18; TEMP 35.9; O2SAT 97; BMI 36.2
--- NOTE | 2024-05-09 10:49 | EX.ED.DYSGE1 ---
HPI History of Present Illness Chief Complaint: Allergic Reaction Narrative Narrative: Patient is a 43-year-old female past medical history of hypercholesteremia, IBS, rash off and on for 6 months following with allergy who presents to the emerged part with a chief complaint of rash. Patient states that yesterday she noted that she had some bumps in her usual distribution however when she woke up this morning her rash came back was very itchy painful and noted that her eyes were itching. States that she does have an appointment with her invoicing machine operator tomorrow as there was any cancellation. Patient notes that she was told take Zyrtec twice a day however states that this does not help her nor does Benadryl. Patient states that she did have COVID last week but denies any other recent illnesses states that she is on several medications. Patient denies any sick contacts. Patient denies any possibility of a contact dermatitis. Patient notes that she recently had a full workup by the invoicing machine operator and this was negative [facility] Medical History Wears glasses Marijuana use History of steroid therapy Arthritis High cholesterol Easy bruising Back pain Migraine headache Gastric reflux Non-smoker Shortness of breath on exertion History of edema Acute Crohn's disease Rheumatoid arthritis Bilateral carpal tunnel syndrome Left hand pain Right hand pain Home Medications ?Medication ?Instructions ?Recorded ?Last Taken ?Type quetiapine 25 mg tablet 25 mg PO DAILY 10/11/22 03/13/24 History sertraline 200 mg capsule 200 mg PO DAILY 10/11/22 03/13/24 History trazodone 50 mg tablet 50 mg PO DAILY 10/11/22 03/12/24 History ciprofloxacin HCl 500 mg tablet 500 mg PO BID #20 TABLETS 03/12/24 03/13/24 Rx metronidazole 500 mg tablet 500 mg PO Q6H #40 tabs 03/12/24 03/13/24 Rx famotidine 20 mg tablet 20 mg PO QHS PRN PRN indigestion 03/13/24 Unknown History oxycodone-acetaminophen 5 mg-325 1 tab PO Q6H PRN PRN Pain 3 days 03/13/24 Unknown Rx mg tablet #12 TABLETS simvastatin 5 mg tablet 5 mg PO QHS cholesterol 03/13/24 03/12/24 History loratadine 10 mg tablet 10 mg PO DAILY 03/19/24 Unknown History (Allerherbertar) hyoscyamine sulfate 0.125 mg tablet 0.25 mg (2 x 0.125 mg) PO BID-QID 03/27/24 Unknown Rx PRN dyspepsia #30 tabs dicyclomine 10 mg capsule 10 mg PO Q6H 2 weeks #56 caps 04/20/24 Unknown Rx vancomycin 125 mg capsule 125 mg PO Q6H 2 weeks #56 caps 04/20/24 Unknown Rx colestipol 1 gram tablet 1 g PO .once-qid #60 tabs 04/27/24 Unknown Rx levocetirizine 5 mg tablet 2.5 mg (1/2 x 5 mg) PO BID 30 days 05/09/24 Unknown Rx #30 tabs Allergy/AdvReac Type Severity Reaction Status Date / Time Penicillins Allergy Hives Verified 04/27/24 07:55 Family History Father Adult T-cell lymphoma Other Cancer Surgical History History of endometrial ablation History of tubal ligation H/O section Social History Smoking Status: Never smoker alcohol intake: current alcohol intake frequency: holidays/special occasions only substance use type: marijuana ROS ROS ED ROS Narrative Constitutional: Denies fevers, chills, headaches Eyes: Denies change in vision double vision blurry vision Cardiovascular: Denies chest pain or palpitations Respiratory: Denies coughing wheezing shortness of breath Abdomen: Denies abdominal pain nausea vomit diarrhea : Denies any urinary symptoms Neurological: Denies numbness, weakness, tingling Musculoskeletal: Denies back pain Skin: Complains of rash as noted above EXAM Physical Exam Narrative Exam Narrative: General: Patient lying in bed rest comfortably did not appear to be in acute distress Head: Atraumatic, normocephalic Eyes, ears, nose, throat: PERRL bilateral, EOMI bilateral, no conjunctival injection, no intraoral lesions noted Neck: Soft, supple, trachea midline Cardiovascular: Regular rate and rhythm no murmurs gallops rubs noted Respiratory: Clear to auscultation bilaterally no rales rhonchi or wheezes noted Abdomen: Soft, nondistended, nontender to palpation Extremities: +5/5 strength noted in the bilateral upper and lower extremities, no pedal edema on exam, radial pulses +2/4 in the bilateral upper extremities Neurological: Patient follow commands knew that she was at [facility] year is 2023 Skin: Warm, dry, patient has a blanching rash noted in her bilateral upper extremities, no petechia no purpura no sloughing of the skin noted Const Vital Signs: 05/09/24 10:01 Temperature 96.7 F L Temperature Source Temporal Pulse Rate 86 Respiratory Rate 18 Blood Pressure 102/86 H Blood Pressure Mean 91 Pulse Ox 97 Oxygen Delivery Method Room Air MDM MDM MDM Narrative Medical decision making narrative: Patient is a 43-year-old female who presented to the emerged part with a chief complaint of rash. Will discuss case with patient's invoicing machine operator and develop a plan from there. I called and spoke with her invoicing machine operator Dr. Morales who states that she had a complete workup recently and notes that she is supposed to be on Zyrtec. I notified him that that she was taking the Zyrtec however she states that it was not working for her so therefore she is not taking anymore. States that Benadryl does not help. He notes that he will see her in the office tomorrow and is recommending Xyzal 2 tablets twice a day. He states that when he follows up with her we will talk about doing an injection with potential steroids. I discussed this with the patient and she is agreeable this plan she would like to go home at this point time. Patient was encouraged return with worsening symptoms or any other concerns between now and her appointment or any other time. All question concerns answered she was discharged home in stable condition. Discharge Plan Triage Chief Complaint: Allergic Reaction ED Provider: Tristin Ojeda Dx/Rx/DC Orders Clinical Impression: Rash Prescriptions: New levocetirizine 5 mg tablet 2.5 mg PO BID 30 Days Qty: 30 0RF No Action sertraline 200 mg capsule 200 mg PO DAILY quetiapine 25 mg tablet 25 mg PO DAILY trazodone 50 mg tablet 50 mg PO DAILY colestipol 1 gram tablet 1 g PO .once-qid Qty: 60 3RF loratadine [Allerclear] 10 mg tablet 10 mg PO DAILY metronidazole 500 mg tablet 500 mg PO Q6H Qty: 40 0RF ciprofloxacin HCl 500 mg tablet 500 mg PO BID Qty: 20 0RF famotidine 20 mg tablet 20 mg PO QHS PRN PRN (Reason: indigestion) simvastatin 5 mg tablet 5 mg PO QHS oxycodone-acetaminophen 5-325 mg tablet 1 tab PO Q6H PRN PRN (Reason: Pain) 3 Days Qty: 12 0RF dicyclomine 10 mg capsule 10 mg PO Q6H 14 Days Qty: 56 0RF vancomycin 125 mg capsule 125 mg PO Q6H 14 Days Qty: 56 0RF hyoscyamine sulfate 0.125 mg tablet 0.25 mg PO BID-QID PRN (Reason: dyspepsia) Qty: 30 3RF Primary Care Provider: Sophia Padilla Referrals: Sophia Padilla, [employer]IST-C [Primary Care Provider] - Activity Restrictions/Additional Instructions: Take the prescription was sent to your pharmacy as prescribed. Follow-up with your invoicing machine operator tomorrow. Return with worsening symptoms or other concerns. Print Language: Georgian Disposition Disposition: Home, Self Care
[2024-05-09 12:15] VITALS: BP 109/76; PULSE 85; RESP 16; TEMP 36.4; O2SAT 99
== END 2024-05-09 12:17 | disposition home or self-care (01) ==
LOC: ED 11:45
PROVIDERS: Emergency Provider Emergency Medicine; PCP Nurse Practitioner Family; Visit Provider Emergency Medicine
DX: R21 Rash and other nonspecific skin eruption (principal)
CPT/HCPCS: 99282